=== PATIENT | female | born 1985 | race Caucasian/White ===

== ENCOUNTER 2016-11-28 12:23 | Outpatient (CLI) | payer BC ==
[~2016-11-28] VITALS: Ht 167.6 cm; Wt 98.5 kg
[~2016-11-28 12:23] MED LIST: ACET500C5 PO; NITR-58 PO
[2016-11-28] MEDS ORDERED: PRENAT PO (12:56)
[2016-11-28 12:57] VITALS: Ht 167.6 cm; Wt 98.5 kg
--- NOTE | 2016-11-28 13:34 | RADRPT ---
PROCEDURE: US OB biophysical profile. CLINICAL INDICATION: tachycardia TECHNIQUE: Multiple sonographic images of the pelvis and gravid uterus were obtained. The images were reviewed on a PACS workstation. COMPARISON: 09/27/2016 FINDINGS: There is a single viable intrauterine gestation. Cardiac activity is present with 156 beats per min [place]. There is a breech presentation. The placenta is anterior. There is no evidence for an abruption or placenta previa. There is a normal amount of amniotic fluid with an SATURNINO = 12.1 cm. Biophysical profile: movement 2/2 tone 2/2. breathing 2/2 SATURNINO 2/2 Total 06/25 RPTAT: AA . IMPRESSION: Normal biophysical profile. . .Derek Olvera MD, Date Time Electronically viewed and signed by .Derek Olvera MD, MD on 11/28/2016 13:34 .S/
--- NOTE | 2016-11-28 13:34 | RADRPT ---
PROCEDURE: US OB. CLINICAL INDICATION: Size and dates , tachycardia TECHNIQUE: Multiple sonographic images of the pelvis and gravid uterus were obtained. The images were reviewed on a PACS workstation. COMPARISON: 09/27/2016 FINDINGS: There is a single viable intrauterine gestation. Cardiac activity is present with 156 beats per min [place]. There is a breech presentation. The placenta is anterior. There is no evidence for an abruption or placenta previa. There is a normal amount of amniotic fluid with an SATURNINO = 12.1 cm. Measurements were made in order to determine age. The results are as follows: BPD =6.2 cm HC =31.5 cm AC =20.5 cm FL =4.1 cm Estimated gestational age of approximately 24 weeks and 2 days based on ultrasound measurements. Clinical age: 27 weeks and 5 days. The estimated date of delivery is 03/18/17, based on ultrasound measurements. The EFW = 674 g, <3%, based on LMP age. RPTAT: AA IMPRESSION: Single viable intrauterine gestation of approximately 24 weeks and 2 days based on ultrasound measu rements. Smaller than clinical age by 2.5 weeks. .Derek Olvera MD, MD Date Time Electronically viewed and signed by .Derek Olvera MD, on 11/28/2016 13:34 .S/
[2016-11-28 14:02] LABS: ADD UMIC YES; URINE BILIRUBIN (Dip) NEGATIVE (NEGATIVE); URINE BLOOD (Dip) NEGATIVE (NEGATIVE); URINE COLOR LT. YELLOW (YELLOW); URINE GLUCOSE (Dip) NEGATIVE (NEGATIVE); URINE KETONES (Dip) NEGATIVE (NEGATIVE); URINE LEUKOCYTE ESTERASE (Dip) 1+ (NEGATIVE); URINE NITRITE (Dip) NEGATIVE (NEGATIVE); URINE TOTAL PROTEIN (Dip) NEGATIVE (NEGATIVE); URINE UROBILINOGEN (Dip) 0.2 E.U./dL (0.1-1.0)
[2016-11-28 14:03] LABS: BASOPHILS % 0.2 % (0.0-2.0); EOSINOPHILS # 0.1 10^3/ul (0.0-0.5); EOSINOPHILS % 0.6 % (0.0-7.0); HEMATOCRIT 38.2 % (37.0-47.0); HEMOGLOBIN 13.1 g/dl (12.0-16.0); LYMPHOCYTES # 1.4 10^3/ul (0.8-2.9); LYMPHOCYTES % 13.1 % (15.0-51.0); MEAN CORPUSCULAR HEMOGLOBIN 30.2 pg (29.0-33.0); MEAN CORPUSCULAR HGB CONC 34.3 g/dl (32.0-37.0); MEAN CORPUSCULAR VOLUME 88.1 fl (82.0-101.0); MEAN PLATELET VOLUME 12.1 fl (7.4-10.4); MONOCYTE # 0.8 10^3/ul (0.3-0.9); MONOCYTES % 7.4 % (0.0-11.0); NEUTROPHIL # 8.2 10^3/ul (1.6-7.5); NEUTROPHILS % 78.7 % (39.0-77.0); PLATELET COUNT 171 10^3/UL (140-440); RED BLOOD COUNT 4.33 10^6/ul (4.20-5.40); UNCORRECTED WBC 10.4 10^3/ul (4.8-10.8); WHITE BLOOD COUNT 10.4 10^3/ul (4.8-10.8)
[2016-11-28 14:07] LABS: CONDITION 1
[2016-11-28 14:16] LABS: INR 0.89; PT RATIO 0.9
[2016-11-28 14:17] LABS: PARTIAL THROMBOPLASTIN TIME 28.4 Sec (25.0-35.0); URINE RBCS NONE SEEN /HPF (0)
[2016-11-28 14:19] LABS: ALBUMIN 3.3 g/dl (3.3-4.9)
[2016-11-28 14:21] LABS: CREATININE 0.59 mg/dl (0.44-1.00)
[2016-11-28 14:22] LABS: ALBUMIN/GLOBULIN RATIO 0.97; BILIRUBIN,INDIRECT 0.1 mg/dl (0-1.1); BILIRUBIN,TOTAL 0.1 mg/dl (0.2-1.3); TOTAL PROTEIN 6.7 g/dl (6.1-8.1); URIC ACID 4.4 mg/dl (3.1-7.9)
[2016-11-28 14:23] LABS: CALCIUM 9.4 mg/dl (8.4-10.2)
--- NOTE | 2016-11-28 21:52 | QN ---
Documentation Comment 31 years old with IUP at 27 weeks and care at [facility] presented due to elevated blood pressure noted in the office visit today as well as tachycardia . Patient denies any LOF, vaginal bleeding or LOF. Records are available but not most recent exams GA: A&O, NAD Abdomen: soft, non tender, gravid. Fundal height consistent with GA Extremities: No calf tenderness, no cord palpable. NST: cat 1.No contractions seen on the monitor BPP: 06/25 SATURNINO: 12.1 Ultrasound: Smaller than GA about 2.5 weeks ROCEDURE: US OB biophysical profile. CLINICAL INDICATION: tachycardia TECHNIQUE: Multiple sonographic images of the pelvis and gravid uterus were obtained. The images were reviewed on a PACS workstation. COMPARISON: 09/27/2016 FINDINGS: There is a single viable intrauterine gestation. Cardiac activity is present with 156 beats per minute. There is a breech presentation. The placenta is anterior. There is no evidence for an abruption or placenta previa. There is a normal amount of amniotic fluid with an SATURNINO = 12.1 cm. Biophysical profile: movement 2/2 tone 2/2. breathing 2/2 SATURNINO 2/2 Total 06/25 RPTAT: AA . IMPRESSION: Normal biophysical profile. .ROCEDURE: US OB. CLINICAL INDICATION: Size and dates , tachycardia TECHNIQUE: Multiple sonographic images of the pelvis and gravid uterus were obtained. The images were reviewed on a PACS workstation. COMPARISON: 09/27/2016 FINDINGS: There is a single viable intrauterine gestation. Cardiac activity is present with 156 beats per minute. There is a breech presentation. The placenta is anterior. There is no evidence for an abruption or placenta previa. There is a normal amount of amniotic fluid with an SATURNINO = 12.1 cm. Measurements were made in order to determine age. The results are as follows: BPD = 6.2 cm HC = 31.5 cm AC = 20.5 cm FL = 4.1 cm Estimated gestational age of approximately 24 weeks and 2 days based on ultrasound measurements. Clinical age: 27 weeks and 5 days. The estimated date of delivery is 03/18/17, based on ultrasound measurements. The EFW = 674 g, <3%, based on LMP age. RPTAT: AA IMPRESSION: Single viable intrauterine gestation of approximately 24 weeks and 2 days based on ultrasound measurements. Smaller than clinical age by 2.5 weeks. My Orders-TAJ ARELLANO MD Procedure Category Date Status Time Complete Blood Count LAB 11/28/16 Complete W/ Diff 13:15 Comprehensive LAB 11/28/16 Complete Metabolic Panel 13:15 Protime/Ptt LAB 11/28/16 Complete 13:15 Fibrinogen LAB 11/28/16 Complete 13:15 Urinalysis LAB 11/28/16 Complete 13:15 Uric Acid LAB 11/28/16 Complete 13:15 Urine Microscopic LAB 11/28/16 Complete (Lab Only) 13:25 Discharge DC 11/28/16 Transmitted Hematology - 72 Hrs Test 11/28/16 13:25 Basophils # 0.010^3/ul (0.0-0.1) Basophils % 0.2% (0.0-2.0) Blood Morphology Comment Eosinophils # 0.110^3/ul (0.0-0.5) Eosinophils % 0.6% (0.0-7.0) Hematocrit 38.2% (37.0-47.0) Hemoglobin 13.1g/dl (12.0-16.0) Lymphocytes # 1.410^3/ul (0.8-2.9) Lymphocytes % 13.1% (15.0-51.0) L Mean Corpuscular Hemoglobin 30.2pg (29.0-33.0) Mean Corpuscular Hemoglobin Concent 34.3g/dl (32.0-37.0) Mean Corpuscular Volume 88.1fl (82.0-101.0) Mean Platelet Volume 12.1fl (7.4-10.4) H Monocytes # 0.810^3/ul (0.3-0.9) Monocytes % 7.4% (0.0-11.0) Neutrophils # 8.210^3/ul (1.6-7.5) H Neutrophils % 78.7% (39.0-77.0) H Nucleated Red Blood Cells # 0.010^3/ul (0.0-0.0) Nucleated Red Blood Cells % 0.0/100WBC (0.0-0.0) Platelet Count 85436^3/UL (140-440) Red Blood Count 4.3310^6/ul (4.20-5.40) Red Cell Distribution Width 12.0% (11.5-14.5) White Blood Count 10.410^3/ul (4.8-10.8) Chemistry Test 11/28/16 13:25 Alanine Aminotransferase (ALT/SGPT) 42IU/L (13-69) Albumin 3.3g/dl (3.3-4.9) Albumin/Globulin Ratio 0.97 Alkaline Phosphatase 89IU/L (42-121) Anion Gap 12 (8-16) Aspartate Amino Transf (AST/SGOT) 20IU/L (15-46) Blood Urea Nitrogen 11mg/dl (7-20) Calcium Level 9.4mg/dl (8.4-10.2) Carbon Dioxide Level 24mmol/L (21-31) Chloride Level 105mmol/L (97-110) Creatinine 0.59mg/dl (0.44-1.00) Direct Bilirubin 0.00mg/dl (0.00-0.20) Globulin 3.40g/dl (1.3-3.2) H Glucose Level 83mg/dl (70-220) Indirect Bilirubin 0.1mg/dl (0-1.1) Potassium Level 4.0mmol/L (3.5-5.1) Sodium Level 137mmol/L (135-144) Total Bilirubin 0.1mg/dl (0.2-1.3) L Total Protein 6.7g/dl (6.1-8.1) Uric Acid 4.4mg/dl (3.1-7.9) Urine Results - 72 Hrs Test 11/28/16 13:25 Urine Bilirubin NEGATIVE (NEGATIVE) Urine Clarity CLEAR (CLEAR) Urine Color LT. YELLOW (YELLOW) Urine Epithelial Cells FEW Urine Glucose NEGATIVE% (NEGATIVE) Urine Hemoglobin NEGATIVE (NEGATIVE) Urine Ketones NEGATIVE (NEGATIVE) Urine Leukocyte Esterase 1+ (NEGATIVE) H Urine Microscopic RBC NONE SEEN/HPF (0) Urine Microscopic WBC 2-5/HPF (0) Urine Nitrite NEGATIVE (NEGATIVE) Urine Specific [place] 1.025 (1.003-1.030) Urine Total Protein NEGATIVE (NEGATIVE) Urine Urobilinogen 0.2 E.U./dL (0.1-1.0) Urine pH 6.0 (5.0-9.0) Assessment: IUP at 27 weeks and 5 days During prolonged observation in the [facility], no elevated blood pressure that meet the criteria for preclampsia noted PIH labs were all normal Patient was completely asymptomatic No tachycardia noted SGA in us exam noted Patient was given strict preclampsia precaution and PTL precaution as well as instruction for kick counts Recommended to RTC in 3 days for repeat NST on saturday and every 3 days until she has repeat follow up us with perinatologist ,. r/o IUGR Will RT NEV clinic in 2 days for follow up exam RTC if any preclampsia symptoms , PTL or any other symptoms Patient verbalized complete understanding TAJ ARELLANO MD Nov 28, 2016 21:52
== END 2016-11-28 16:45 | disposition home or self-care (01) ==
LOC: OBT 12:23 → L-D 12:24 → OBT 16:45
PROVIDERS: ATTEND Obstetrics & Gynecology
DX: O26.892 Other specified pregnancy related conditions, second trimester (principal); R03.0 Elevated blood-pressure reading, without diagnosis of hypertension; O76 Abnormality in fetal heart rate and rhythm complicating labor and delivery; Z3A.27 27 weeks gestation of pregnancy
CPT/HCPCS: 36415; 76815; 76818; 80053; 81001; 84560; 85025; 85384; 85610; 85730; Z7500; 81003; G0463

== ENCOUNTER 2016-12-01 12:03 | Outpatient (CLI) | payer BC ==
[~2016-12-01] VITALS: Ht 168.9 cm; Wt 98.2 kg
[~2016-12-01 12:03] MED LIST changes: -ACET500C5 PO; -NITR-58 PO; +PRENAT PO
[2016-12-01 12:31] VITALS: Ht 168.9 cm; Wt 98.2 kg
--- NOTE | 2017-02-11 13:10 | QN ---
Documentation Comment Patient was seen at at the triage unit to rule out IUGR underwent an ultrasound evaluation patient discharged home to the care of the clinic to repeat ultrasound in 2 weeks rule out IUGR Impression rule out IUGR NIKKY JERRY MD Feb 11, 2017 13:10
== END 2016-12-01 13:23 | disposition home or self-care (01) ==
LOC: L-D 12:03 → OBT 12:03
PROVIDERS: ATTEND Obstetrics & Gynecology
DX: O26.899 Other specified pregnancy related conditions, unspecified trimester (principal); Z3A.00 Weeks of gestation of pregnancy not specified
CPT/HCPCS: G0463

== ENCOUNTER 2016-12-18 11:27 | Inpatient (IN) | payer BC ==
[~2016-12-18] VITALS: Ht 167.6 cm; Wt 94.5 kg
[2016-12-18] MEDS: LACTATED RINGER'S 1,000 ML IV SCH ×2 (13:51→22:10)
[2016-12-18 14:07] VITALS: Ht 167.6 cm; Wt 94.5 kg
[2016-12-18 14:09] VITALS: BP 133/89; PULSE 87; RESP 16
--- NOTE | 2016-12-18 14:11 | HP ---
Date/Time of Note Date/Time of Note DATE: 12/18/16 TIME: 13:49 OB - History Hx of Present Free Text/Dictation This is a 31 years old female 3 para 2, EDC of 2016 referred from perinatology clinic for PIH work up, today's ultrasound places the baby at 15% suspected of IUGR, patient also is complaining of headache but no blurry vision or epigastric pain, her blood pressure running in the 140s over 80s and 90s no ankle edema, reflexes slightly hyperactive Chief Complaint: Rule out PIH Estimated Due Date: Mar 01, 2017 : 3 Para: 2 Care: Limited Care Ultrasounds: Normal mid trimester US Obstetrical Complications: Pre-eclampsia Past Family/Social History * Past Medical, Surgical, Family and Obstetric Histories reviewed from chart. Rubella: immune RPR/VDRL: Negative GBS Status: Negative HBsAG: Unknown OB Admission Exam Physical Exam HEENT: WNL Heart: Rhythm Normal Lungs: Clear, Equal Extremities: Normal Reflexes: Hyperreflexia Present Cervical Dilatation: None Effacement: 0% Station: Ballotable Membranes: Intact Heart Rate: 130's Accelerations: Accelerations Present Decelerations: No Decelerations Varibility: Moderate OB Assessment/Plan Reason for admission: other (Rule out PIh, rule out IUGR) Plan: Other (Observation complete workup for PIH) NIKKY JERRY MD Dec 18, 2016 14:00
[2016-12-18] MEDS ORDERED: LACTATED RINGER'S 1,000 ML IV SCH (14:30)
[2016-12-18] MEDS: MULTIVIT/MIN/FOLATE/IRON/PREN TAB PO SCH (14:54)
[2016-12-18 14:55] LABS: BASOPHILS % 0.1 % (0.0-2.0); EOSINOPHILS # 0.1 10^3/ul (0.0-0.5); EOSINOPHILS % 0.6 % (0.0-7.0); HEMATOCRIT 38.2 % (37.0-47.0); HEMOGLOBIN 12.8 g/dl (12.0-16.0); LYMPHOCYTES # 1.5 10^3/ul (0.8-2.9); LYMPHOCYTES % 12.9 % (15.0-51.0); MEAN CORPUSCULAR HEMOGLOBIN 30.1 pg (29.0-33.0); MEAN CORPUSCULAR HGB CONC 33.6 g/dl (32.0-37.0); MEAN CORPUSCULAR VOLUME 89.6 fl (82.0-101.0); MEAN PLATELET VOLUME 13.1 fl (7.4-10.4); MONOCYTE # 0.6 10^3/ul (0.3-0.9); MONOCYTES % 5.4 % (0.0-11.0); NEUTROPHIL # 9.3 10^3/ul (1.6-7.5); PLATELET COUNT 143 10^3/UL (140-440); RED BLOOD COUNT 4.26 10^6/ul (4.20-5.40); RED CELL DISTRIBUTION WIDTH 12.4 % (11.5-14.5); UNCORRECTED WBC 11.5 10^3/ul (4.8-10.8); WHITE BLOOD COUNT 11.5 10^3/ul (4.8-10.8)
[2016-12-18] MEDS: BETAMET NA PHOS/AC(6 MG/ML) 5ML INJ IM SCH (14:55)
[2016-12-18 14:58] LABS: ADD UMIC NO; URINE BILIRUBIN (Dip) NEGATIVE (NEGATIVE); URINE BLOOD (Dip) NEGATIVE (NEGATIVE); URINE COLOR LT. YELLOW (YELLOW); URINE GLUCOSE (Dip) NEGATIVE (NEGATIVE); URINE KETONES (Dip) NEGATIVE (NEGATIVE); URINE LEUKOCYTE ESTERASE (Dip) NEGATIVE (NEGATIVE); URINE NITRITE (Dip) NEGATIVE (NEGATIVE); URINE TOTAL PROTEIN (Dip) NEGATIVE (NEGATIVE); URINE UROBILINOGEN (Dip) 0.2 E.U./dL (0.1-1.0)
[2016-12-18 14:59] LABS: CONDITION 1; LH ANALYZER COMMENTS 1; SUSPECT 1
[2016-12-18 15:08] LABS: INR 0.98
[2016-12-18 15:09] LABS: PARTIAL THROMBOPLASTIN TIME 29.7 Sec (25.0-35.0)
[2016-12-18 15:32] LABS: ALBUMIN 3.1 g/dl (3.3-4.9); POTASSIUM 3.9 mmol/L (3.5-5.1)
[2016-12-18 15:34] LABS: CREATININE 0.61 mg/dl (0.44-1.00)
[2016-12-18 15:35] LABS: CALCIUM 9.2 mg/dl (8.4-10.2); TOTAL PROTEIN 6.2 g/dl (6.1-8.1)
[2016-12-18 19:06] LABS: FIBRIN SPLIT PRODUCT <10 ug/ml (<10)
[2016-12-19] MEDS: MULTIVIT/MIN/FOLATE/IRON/PREN TAB PO SCH (08:59)
--- NOTE | 2016-12-19 13:49 | PN ---
Date/Time of Note Date/Time of Note DATE: 12/19/16 TIME: 13:43 OB Subjective Subjective Subjective Vital signs are stable blood pressure running 130 over 80s, negative protein in urinalysis ,24 hours urine collection for protein and creatinine clearance not available, patient has no more headache or epigastric pain or any other complaint, heart tracing category 1 compatible with the stage of we will continue expectant management NIKKY JERRY MD Dec 19, 2016 13:49
[2016-12-19] MEDS: BETAMET NA PHOS/AC(6 MG/ML) 5ML INJ IM SCH (14:31)
--- NOTE | 2016-12-19 16:09 | RADRPT ---
PROCEDURE: US biophysical profile. CLINICAL INDICATION: Decreased motion. Hypertension. TECHNIQUE: Multiple sonographic images of the uterus were obtained. The images were revi ewed on a PACS workstation. COMPARISON: No prior studies are available for comparison. FINDINGS: There is a single live intrauterine gestation. heart rate is 161 beats per minute. The position is cephalic. The placenta is anterior grade 1 with no abruption or previa. The SATURNINO is 12.6 cm. (Normal = 5-20 cm.) Breathing Movement: 2 Gross Body Movement: 2 Tone: 2 Qualitative Amniotic Fluid Volume: 2 TOTAL: 8 IMPRESSION: 1. The biophysical score is 8/8. RPTAT: QQ .Balaji Edmondson MD, MD Date Time Electronically viewed and signed by .Balaji Edmondson MD, on 12/19/2016 16:09 .R/
--- NOTE | 2016-12-19 16:11 | RADRPT ---
PROCEDURE: US OB. CLINICAL INDICATION: Hypertension. TECHNIQUE: Multiple sonographic images of the uterus were obtained. The images were revi ewed on a PACS workstation. COMPARISON: 11/28/2016. FINDINGS: There is a single live intrauterine gestation. heart rate is 148 beats per minute. Measurements were made in order to determine age. The results are as follows: BPD = 6.76 cm. HC = 24.42 cm. AC = 24.51 cm. FL = 4.87 cm. Estimated weight is 1104 +/- 166 grams. LMP growth percentile is less than 3%. Menstrual age by ultrasound dates is 27 weeks 2 days. The estimated date of delivery is 03/18/2017. Position is cephalic and placenta is anterior grade 1. There is no evidence for an abruption or plac enta previa. IMPRESSION: 1. Single live intrauterine gestation of 27 weeks 2 days menstrual age by ultrasound dates. 2. The estimated date of delivery is 03/18/2017. 3. Growth percentile is less than 3%. RPTAT: QQ .Balaji Edmondson MD, Date Time Electronically viewed and signed by .Balaji Edmondson MD, on 12/19/2016 16:11 .R/
[2016-12-19 17:42] LABS: COLLECTION PERIOD 24 hrs; SCRET 0.61 mg/dl (0.44-1.00)
[2016-12-20] MEDS: MULTIVIT/MIN/FOLATE/IRON/PREN TAB PO SCH (08:37)
--- NOTE | 2016-12-20 10:18 | DS ---
Date/Time of Note Date/Time of Note DATE: 12/20/16 TIME: 10:05 Obstetrical Discharge Record Final Diagnosis Final Diagnosis: not delivered Condition on Discharge Physical Assessment Last Vitals: This is a 31 years old female 3 para 2 EDC of February 22, today at 31 week gestation, she was originally admitted to the hospital to rule out PIH referred from NST clinic for evaluation, during the stay in the hospital all PIH workup was negative, 24 hours urine collection not available at this time, but urinalysis shows no protein in the urine, telephone consult with perinatologist today recommend to discharge home with appointment a.m.at perinatology clinic Voiding: Yes Bowel Movement: Yes Breast: Soft, non-tender Fundus: Other (Consistent with 31 week ) Calf Tenderness: No Patient Condition: Good NIKKY JERRY MD Dec 20, 2016 10:17
[2016-12-21] MEDS ORDERED: MULTIVIT/MIN/FOLATE/IRON/PREN TAB PO SCH (09:00)
== END 2016-12-20 11:29 | disposition home or self-care (01) | DRG 781 ==
LOC: OBG 11:27 → EDSTATUS 12:07
PROVIDERS: ADMIT Obstetrics & Gynecology; ATTEND Obstetrics & Gynecology
DX: O26.893 Other specified pregnancy related conditions, third trimester (principal); R51 Headache; Z3A.31 31 weeks gestation of pregnancy
CPT/HCPCS: 76816; 76818; 80053; 81003; 82575; 84156; 84560; 85025; 85362; 85384; 85610; 85730; J0702; J7120

== ENCOUNTER 2016-12-29 22:19 | Outpatient (CLI) | payer BC ==
[~2016-12-29] VITALS: Ht 170.2 cm; Wt 98.8 kg
[2016-12-29] MEDS ORDERED: LABE100T39 PO (22:45)
[2016-12-29] MEDS ORDERED: FERR325C PO (22:45)
[2016-12-29] MEDS ORDERED: ACET500C5 PO (22:45)
[2016-12-29 22:46] VITALS: Ht 170.2 cm; Wt 98.8 kg
[2016-12-29 22:47] VITALS: BP 138/95; PULSE 96; RESP 20
[2016-12-30] MEDS ORDERED: LACTATED RINGER'S 1,000 ML IV* SCH
[2016-12-30] MEDS ORDERED: HYDROCODONE/APAP (5/325) TAB PO ONE
[2016-12-30] MEDS ORDERED: LABETALOL 200 MG TAB PO ONE
[2016-12-30 00:51] LABS: ADD UMIC YES; URINE BILIRUBIN (Dip) NEGATIVE (NEGATIVE); URINE BLOOD (Dip) NEGATIVE (NEGATIVE); URINE COLOR LT. YELLOW (YELLOW); URINE GLUCOSE (Dip) NEGATIVE (NEGATIVE); URINE KETONES (Dip) NEGATIVE (NEGATIVE); URINE LEUKOCYTE ESTERASE (Dip) 1+ (NEGATIVE); URINE NITRITE (Dip) NEGATIVE (NEGATIVE); URINE TOTAL PROTEIN (Dip) NEGATIVE (NEGATIVE); URINE UROBILINOGEN (Dip) 0.2 E.U./dL (0.1-1.0)
[2016-12-30 01:01] LABS: INR 0.91; PROTIME 12.2 Sec (12.2-14.2)
[2016-12-30 01:02] LABS: BACTERIA,URINE RARE; PARTIAL THROMBOPLASTIN TIME 30.3 Sec (25.0-35.0); SQUAMOUS EPITHELIAL CELL,UR MODERATE; URINE RBCS NONE SEEN /HPF (0)
[2016-12-30 01:14] LABS: ALBUMIN 3.3 g/dl (3.3-4.9)
[2016-12-30 01:15] LABS: POTASSIUM 4.3 mmol/L (3.5-5.1)
[2016-12-30 01:16] LABS: CREATININE 0.63 mg/dl (0.44-1.00)
[2016-12-30 01:17] LABS: ALBUMIN/GLOBULIN RATIO 0.91; TOTAL PROTEIN 6.9 g/dl (6.1-8.1); URIC ACID 5.9 mg/dl (3.1-7.9)
[2016-12-30 01:18] LABS: CALCIUM 9.3 mg/dl (8.4-10.2)
[2016-12-30 01:32] LABS: BASOPHILS % 0.2 % (0.0-2.0); EOSINOPHILS # 0.1 10^3/ul (0.0-0.5); EOSINOPHILS % 0.7 % (0.0-7.0); HEMATOCRIT 37.5 % (37.0-47.0); HEMOGLOBIN 12.8 g/dl (12.0-16.0); LYMPHOCYTES # 2.2 10^3/ul (0.8-2.9); MEAN CORPUSCULAR HEMOGLOBIN 30.3 pg (29.0-33.0); MEAN CORPUSCULAR HGB CONC 34.1 g/dl (32.0-37.0); MEAN CORPUSCULAR VOLUME 88.7 fl (82.0-101.0); MEAN PLATELET VOLUME 13.6 fl (7.4-10.4); MONOCYTE # 0.9 10^3/ul (0.3-0.9); MONOCYTES % 7.3 % (0.0-11.0); NEUTROPHIL # 9.5 10^3/ul (1.6-7.5); NEUTROPHILS % 74.3 % (39.0-77.0); PLATELET COUNT 187 10^3/UL (140-415); RED BLOOD COUNT 4.23 10^6/ul (4.20-5.40); RED CELL DISTRIBUTION WIDTH 12.3 % (11.5-14.5); WHITE BLOOD COUNT 12.8 10^3/ul (4.8-10.8)
--- NOTE | 2016-12-30 03:07 | QN ---
Documentation Comment Laborist RODRIGO pt 31 y.o. with an IUP at 32w 2d with a c/o CALDERON. Pt has a h/o gestational HTN and is on Labetolol 100 mg BID that she has been taking at 11:45 and 23:45 q day. Denies visual changes, epigastric pain. Prior admit labs all within normal. A 24 hour urine collection showed 287 mg protein in 24 hours. Pt took Tylenol 325 mg only today and it didn't help the CALDERON at all. PMHx: GHTN. PSHx: none. POBHx: x 2. NKDA. BP 138/9. T= 98.1 NST: baseline 140's with accels to 160 bpm. No decels. No UC's. U/A negative. Plts 187K. ALT/AST 34/24. Uric acid 5.9. We gave her the dose of labetolol that was due and placed her on the side and her BP's were 120-134/ 73-87. One [place] easily made the CALDERON go away. Pt apparently has not been sleeping well recently at all. A: IUP at 32w 2d. Gestational HTN. Headache resolved. P: D/C home. Change the Medication time to 10 in AM and PM. Reviewed PIH sx's and emphasized the importance of coming in if she doesn't have resolution with easy measures. Benadryl or Unisom to help her sleep. LUIS COX MD Dec 30, 2016 03:06
--- NOTE | 2016-12-30 05:47 | TRIAGE ---
OB Triage Datetime Report Generated by CPN: 12/30/2016 05:45 Datetime: 12/30/2016 02:58 Stage of : OB Triage Datetime: 12/30/2016 02:38 Stage of : OB Triage Labor Evaluation Frequency: None noted or palpated. Pt denies any pain or cramping. Monitor Mode: External Resting Tone [place]: Relaxed Heart Rate FHR Baseline Rate: 140 Monitor Mode: External US Variability: Moderate 6-25 bpm Accelerations: 15X15 Decelerations: None Datetime: 12/30/2016 02:31 Stage of : OB Triage Datetime: 12/30/2016 02:00 Stage of : OB Triage Labor Evaluation Frequency: None noted or palpated. Pt denies any pain or cramping. Monitor Mode: External Resting Tone [place]: Relaxed Heart Rate FHR Baseline Rate: 140 Monitor Mode: External US Variability: Moderate 6-25 bpm Accelerations: 15X15 Decelerations: Variable Category: Category II Datetime: 12/30/2016 01:38 Stage of : OB Triage Datetime: 12/30/2016 01:11 Monitor Mode: External Monitor Mode: External US Datetime: 12/30/2016 01:00 Stage of : OB Triage Labor Evaluation Frequency: None noted or palpated. Pt denies any pain or cramping. Monitor Mode: External Resting Tone [place]: Relaxed Heart Rate FHR Baseline Rate: 140 Monitor Mode: External US Variability: Moderate 6-25 bpm Accelerations: 15X15 Decelerations: Variable Category: Category II Datetime: 12/30/2016 00:00 Stage of : OB Triage Labor Evaluation Frequency: None noted or palpated. Pt denies any pain or cramping. Monitor Mode: External Resting Tone [place]: Relaxed Heart Rate FHR Baseline Rate: 140 Monitor Mode: External US Variability: Moderate 6-25 bpm Accelerations: 15X15 Decelerations: None Datetime: 12/29/2016 23:30 Stage of : OB Triage Datetime: 12/29/2016 23:00 Stage of : OB Triage Labor Evaluation Frequency: None noted or palpated. Pt denies any pain or cramping. Monitor Mode: External Resting Tone [place]: Relaxed Heart Rate FHR Baseline Rate: 145 Monitor Mode: External US Variability: Moderate 6-25 bpm Accelerations: 15X15 Decelerations: None Category: Category I Datetime: 12/29/2016 22:30 Stage of : OB Triage Assessment Type: Triage Maternal Assessment Level of Consciousness: Fully Conscious DTR's/Clonus: DTRs 2+; No Clonus Headache: Occipital Blurred Vision: Yes Respiratory Effort: Unlabored; Regular Rhythm; Equal Expansion Breath Sounds, Left: Clear and Equal Breath Sounds, Right: Clear and Equal Nausea/Vomiting: Denies RUQ Epigastric Pain: Denies Lower Extremities Edema: None Degree: None Upper Extremities Edema: None Degree: None Facial Edema: None Temperature Route: Oral Fall Risk Assessment History of Falling: (0) No Secondary Diagnosis: (0) No Ambulatory Aid: (0) Bedrest/Nurse Assist IV Therapy: (0) No Gait: (0) Normal/Bedrest/Immobile Mental Status: (0) Oriented to Own Ability Fall Score: 0 Fall Risk Score Definition: No Risk: No action required Pain Assessment Pain Scale: 8 Pain Presence: Constant Pain Type: Ache Pain Location: Head Pain Relief Measures: Comfort Measures Datetime: 12/29/2016 22:29 Monitor Mode: External Contraction Comments: [place] applied Heart Rate FHR Baseline Rate: 150 Monitor Mode: External US Comments: EFM applied Datetime: 12/29/2016 22:21 Time of Arrival: 12/29/2016 22:13 EGA: 32.1 Arrived By: Wheelchair Arrived From: Home Chief Complaint: CALDERON SINCE 13:00 HX OF HTN, ON MEDS Movement: Decreased Contractions: Denies/Absent Rupture of Membranes: Denies Vaginal Bleeding: None Vaginal Discharge: Denies Recent Sexual Intercouse: Denies Abdominal Trauma: Not Applicable Patient Complaints: Headache; Other Additional Patient Complaints: SEEING SPOTS Time Provider Notified: 12/29/2016 22:30 Provider Notified: KENNY Initial Plan: EFM, VS, CALL OB Datetime: 12/20/2016 11:15 Stage of : Antepartum Datetime: 12/20/2016 09:46 Labor Evaluation Frequency: none Monitor Mode: External Resting Tone [place]: Relaxed Heart Rate FHR Baseline Rate: 140 Monitor Mode: External US FHR Baseline Changes: No Baseline Change Variability: Moderate 6-25 bpm Accelerations: 15X15 Datetime: 12/20/2016 08:46 Labor Evaluation Frequency: none Monitor Mode: External Resting Tone [place]: Relaxed Heart Rate FHR Baseline Rate: 140 Monitor Mode: External US FHR Baseline Changes: No Baseline Change Variability: Moderate 6-25 bpm Accelerations: 15X15 Datetime: 12/20/2016 07:46 Temperature Route: Oral Labor Evaluation Frequency: none Monitor Mode: External Resting Tone [place]: Relaxed Heart Rate FHR Baseline Rate: 140 Monitor Mode: External US FHR Baseline Changes: No Baseline Change Variability: Moderate 6-25 bpm Accelerations: 15X15 Decelerations: Variable Datetime: 12/20/2016 07:30 Assessment Type: Ongoing Assessment Maternal Assessment Level of Consciousness: Fully Conscious DTR's/Clonus: DTRs 2+; No Clonus Headache: Denies Blurred Vision: No Respiratory Effort: Unlabored; Regular Rhythm; Equal Expansion Breath Sounds, Left: Clear and Equal Breath Sounds, Right: Clear and Equal Nausea/Vomiting: Denies RUQ Epigastric Pain: Denies Lower Extremities Edema: None Degree: None Upper Extremities Edema: None Degree: None Facial Edema: None Fall Risk Assessment History of Falling: (0) No Secondary Diagnosis: (0) No Ambulatory Aid: (0) Bedrest/Nurse Assist IV Therapy: (0) No Gait: (0) Normal/Bedrest/Immobile Mental Status: (0) Oriented to Own Ability Fall Score: 0 Fall Risk Score Definition: No Risk: No action required Datetime: 12/20/2016 06:58 Labor Evaluation Frequency: none Monitor Mode: External Resting Tone [place]: Relaxed Heart Rate FHR Baseline Rate: 140 Monitor Mode: External US FHR Baseline Changes: No Baseline Change Variability: Moderate 6-25 bpm Accelerations: 15X15 Decelerations: Variable Category: Category II Datetime: 12/20/2016 06:00 Labor Evaluation Frequency: none Monitor Mode: External Resting Tone [place]: Relaxed Heart Rate FHR Baseline Rate: 140 Monitor Mode: External US FHR Baseline Changes: No Baseline Change Variability: Moderate 6-25 bpm Accelerations: 15X15 Decelerations: None Category: Category I Datetime: 12/20/2016 05:46 Stage of : Antepartum Datetime: 12/20/2016 05:00 Labor Evaluation Frequency: none Monitor Mode: External Resting Tone [place]: Relaxed Heart Rate FHR Baseline Rate: 140 Monitor Mode: External US FHR Baseline Changes: No Baseline Change Variability: Moderate 6-25 bpm Accelerations: 15X15 Decelerations: Variable Category: Category II Datetime: 12/20/2016 04:00 Labor Evaluation Frequency: none Monitor Mode: External Resting Tone [place]: Relaxed Heart Rate FHR Baseline Rate: 130 Monitor Mode: External US FHR Baseline Changes: No Baseline Change Variability: Moderate 6-25 bpm Accelerations: 15X15 Decelerations: None Category: Category I Datetime: 12/20/2016 03:00 Labor Evaluation Frequency: none Monitor Mode: External Resting Tone [place]: Relaxed Heart Rate FHR Baseline Rate: 130 Monitor Mode: External US FHR Baseline Changes: No Baseline Change Variability: Moderate 6-25 bpm Accelerations: 15X15 Decelerations: None Category: Category I Datetime: 12/20/2016 02:00 Labor Evaluation Frequency: none Monitor Mode: External Resting Tone [place]: Relaxed Heart Rate FHR Baseline Rate: 130 Monitor Mode: External US FHR Baseline Changes: No Baseline Change Variability: Moderate 6-25 bpm Accelerations: 15X15 Decelerations: Variable Category: Category II Datetime: 12/20/2016 01:00 Labor Evaluation Frequency: none Monitor Mode: External Resting Tone [place]: Relaxed Heart Rate FHR Baseline Rate: 140 Monitor Mode: External US FHR Baseline Changes: No Baseline Change Variability: Moderate 6-25 bpm Accelerations: 15X15 Decelerations: None Category: Category I Datetime: 12/20/2016 00:00 Labor Evaluation Frequency: none Monitor Mode: External Resting Tone [place]: Relaxed Heart Rate FHR Baseline Rate: 140 Monitor Mode: External US FHR Baseline Changes: No Baseline Change Variability: Moderate 6-25 bpm Accelerations: 15X15 Decelerations: None Category: Category I Datetime: 12/19/2016 23:00 Labor Evaluation Frequency: none Monitor Mode: External Resting Tone [place]: Relaxed Heart Rate FHR Baseline Rate: 140 Monitor Mode: External US FHR Baseline Changes: No Baseline Change Variability: Moderate 6-25 bpm Accelerations: 15X15 Decelerations: None Category: Category I Datetime: 12/19/2016 22:00 Labor Evaluation Frequency: x1 Monitor Mode: External Duration (sec)2399: 70 Quality: Mild Resting Tone [place]: Relaxed Contraction Comments: pt without complaint of uc pain Heart Rate FHR Baseline Rate: 140 Monitor Mode: External US FHR Baseline Changes: No Baseline Change Variability: Moderate 6-25 bpm Accelerations: 15X15 Decelerations: None Category: Category I Pain Assessment Pain Scale: 0 Pain Presence: None/Denies Datetime: 12/19/2016 21:00 Labor Evaluation Frequency: none Monitor Mode: External Resting Tone [place]: Relaxed Heart Rate FHR Baseline Rate: 145 Monitor Mode: External US FHR Baseline Changes: No Baseline Change Variability: Moderate 6-25 bpm Accelerations: 15X15 Decelerations: None Category: Category I Datetime: 12/19/2016 20:10 Labor Evaluation Frequency: none Monitor Mode: External Resting Tone [place]: Relaxed Heart Rate FHR Baseline Rate: 135 Monitor Mode: External US FHR Baseline Changes: No Baseline Change Variability: Moderate 6-25 bpm Accelerations: 15X15 Decelerations: None Category: Category I Pain Assessment Pain Scale: 0 Pain Presence: None/Denies Datetime: 12/19/2016 20:02 Assessment Type: Ongoing Assessment Maternal Assessment Level of Consciousness: Fully Conscious DTR's/Clonus: DTRs 2+; No Clonus Headache: Denies Blurred Vision: No Respiratory Effort: Unlabored; Regular Rhythm; Equal Expansion Breath Sounds, Left: Clear and Equal Breath Sounds, Right: Clear and Equal Nausea/Vomiting: Denies RUQ Epigastric Pain: Denies Lower Extremities Edema: None Degree: None Upper Extremities Edema: None Degree: None Facial Edema: None Fall Risk Assessment History of Falling: (0) No Secondary Diagnosis: (0) No Ambulatory Aid: (0) Bedrest/Nurse Assist IV Therapy: (0) No Gait: (0) Normal/Bedrest/Immobile Mental Status: (0) Oriented to Own Ability Fall Score: 0 Fall Risk Score Definition: No Risk: No action required Datetime: 12/19/2016 20:01 Stage of : Antepartum Temperature Route: Oral Datetime: 12/19/2016 18:46 Maternal Assessment Level of Consciousness: Fully Conscious Headache: Denies Nausea/Vomiting: Denies RUQ Epigastric Pain: Denies Labor Evaluation Frequency: 0 Monitor Mode: External Resting Tone [place]: Relaxed Heart Rate FHR Baseline Rate: 140 Monitor Mode: External US Variability: Moderate 6-25 bpm Accelerations: 15X15 Decelerations: None Pain Presence: None/Denies Pain Type: N/A Datetime: 12/19/2016 17:45 Maternal Assessment Level of Consciousness: Fully Conscious Headache: Denies Nausea/Vomiting: Denies RUQ Epigastric Pain: Denies Labor Evaluation Frequency: 0 Monitor Mode: External Resting Tone [place]: Relaxed Heart Rate FHR Baseline Rate: 140 Monitor Mode: External US Variability: Moderate 6-25 bpm Accelerations: 15X15 Decelerations: None Pain Presence: None/Denies Pain Type: N/A Datetime: 12/19/2016 16:45 Maternal Assessment Level of Consciousness: Fully Conscious Headache: Denies Nausea/Vomiting: Denies RUQ Epigastric Pain: Denies Temperature Route: Oral Labor Evaluation Frequency: 0 Monitor Mode: External Resting Tone [place]: Relaxed Heart Rate FHR Baseline Rate: 140 Monitor Mode: External US Variability: Moderate 6-25 bpm Accelerations: 15X15 Decelerations: None Pain Presence: None/Denies Pain Type: N/A Datetime: 12/19/2016 15:45 Maternal Assessment Level of Consciousness: Fully Conscious Headache: Denies Nausea/Vomiting: Denies RUQ Epigastric Pain: Denies Temperature Route: Oral Labor Evaluation Frequency: 0 Monitor Mode: External Resting Tone [place]: Relaxed Heart Rate FHR Baseline Rate: 140 Monitor Mode: External US Variability: Moderate 6-25 bpm Accelerations: 15X15 Decelerations: None Pain Presence: None/Denies Pain Type: N/A Datetime: 12/19/2016 14:45 Maternal Assessment Level of Consciousness: Fully Conscious Headache: Denies Nausea/Vomiting: Denies RUQ Epigastric Pain: Denies Labor Evaluation Frequency: 0 Monitor Mode: External Resting Tone [place]: Relaxed Heart Rate FHR Baseline Rate: 140 Monitor Mode: External US Variability: Moderate 6-25 bpm Accelerations: 15X15 Decelerations: None Pain Presence: None/Denies Pain Type: N/A Datetime: 12/19/2016 13:45 Maternal Assessment Level of Consciousness: Fully Conscious Headache: Denies Nausea/Vomiting: Denies RUQ Epigastric Pain: Denies Labor Evaluation Frequency: x2 Monitor Mode: External Duration (sec)2399: 50 Quality: Mild Resting Tone [place]: Relaxed Heart Rate FHR Baseline Rate: 140 Monitor Mode: External US Variability: Moderate 6-25 bpm Accelerations: 15X15 Decelerations: None Pain Presence: None/Denies Pain Type: N/A Datetime: 12/19/2016 13:30 Stage of : Antepartum Datetime: 12/19/2016 12:45 Maternal Assessment Level of Consciousness: Fully Conscious Headache: Denies Nausea/Vomiting: Denies RUQ Epigastric Pain: Denies Labor Evaluation Frequency: x2 Monitor Mode: External Duration (sec)2399: 50 Quality: Mild Resting Tone [place]: Relaxed Heart Rate FHR Baseline Rate: 140 Monitor Mode: External US Variability: Moderate 6-25 bpm Accelerations: 15X15 Decelerations: None Pain Presence: None/Denies Pain Type: N/A Datetime: 12/19/2016 11:45 Maternal Assessment Level of Consciousness: Fully Conscious Headache: Denies Nausea/Vomiting: Denies RUQ Epigastric Pain: Denies Temperature Route: Oral Labor Evaluation Frequency: 0 Monitor Mode: External Duration (sec)2399: denies Resting Tone [place]: Relaxed Heart Rate FHR Baseline Rate: 140 Monitor Mode: External US Variability: Moderate 6-25 bpm Accelerations: 15X15 Decelerations: None Pain Presence: None/Denies Pain Type: N/A Datetime: 12/19/2016 10:45 Maternal Assessment Level of Consciousness: Fully Conscious Headache: Denies Nausea/Vomiting: Denies RUQ Epigastric Pain: Denies Labor Evaluation Frequency: 0 Monitor Mode: External Duration (sec)2399: denies Resting Tone [place]: Relaxed Heart Rate FHR Baseline Rate: 140 Monitor Mode: External US Variability: Moderate 6-25 bpm Accelerations: 15X15 Decelerations: None Pain Presence: None/Denies Pain Type: N/A Datetime: 12/19/2016 09:45 Maternal Assessment Level of Consciousness: Fully Conscious Headache: Denies Nausea/Vomiting: Denies RUQ Epigastric Pain: Denies Labor Evaluation Frequency: 0 Monitor Mode: External Duration (sec)2399: denies Resting Tone [place]: Relaxed Heart Rate FHR Baseline Rate: 140 Monitor Mode: External US Variability: Moderate 6-25 bpm Accelerations: 15X15 Decelerations: None Pain Presence: None/Denies Pain Type: N/A Datetime: 12/19/2016 08:45 Maternal Assessment Level of Consciousness: Fully Conscious DTR's/Clonus: DTRs 2+; No Clonus Headache: Denies Nausea/Vomiting: Denies RUQ Epigastric Pain: Denies Labor Evaluation Frequency: 0 Monitor Mode: External Duration (sec)2399: denies Resting Tone [place]: Relaxed Heart Rate FHR Baseline Rate: 140 Monitor Mode: External US Variability: Moderate 6-25 bpm Accelerations: 15X15 Decelerations: None Pain Presence: None/Denies Pain Type: N/A Datetime: 12/19/2016 07:45 Assessment Type: Ongoing Assessment Maternal Assessment Level of Consciousness: Fully Conscious DTR's/Clonus: DTRs 2+; No Clonus Headache: Denies Blurred Vision: No Respiratory Effort: Unlabored; Regular Rhythm; Equal Expansion Breath Sounds, Left: Clear and Equal Breath Sounds, Right: Clear and Equal Nausea/Vomiting: Denies RUQ Epigastric Pain: Denies Lower Extremities Edema: None Degree: None Upper Extremities Edema: None Degree: None Facial Edema: None Temperature Route: Oral Fall Risk Assessment History of Falling: (0) No Secondary Diagnosis: (0) No Ambulatory Aid: (0) Bedrest/Nurse Assist IV Therapy: (0) No Gait: (0) Normal/Bedrest/Immobile Mental Status: (0) Oriented to Own Ability Fall Score: 0 Fall Risk Score Definition: No Risk: No action required Labor Evaluation Frequency: 0 Monitor Mode: External Duration (sec)2399: denies Resting Tone [place]: Relaxed Heart Rate FHR Baseline Rate: 135 Monitor Mode: External US Variability: Moderate 6-25 bpm Accelerations: 15X15 Decelerations: None Pain Presence: None/Denies Pain Type: N/A Datetime: 12/19/2016 06:00 Labor Evaluation Frequency: 0 Monitor Mode: External Duration (sec)2399: denies Resting Tone [place]: Relaxed Heart Rate FHR Baseline Rate: 140 Monitor Mode: External US Variability: Moderate 6-25 bpm Accelerations: 15X15 Decelerations: None Category: Category I Pain Presence: None/Denies Pain Type: N/A Datetime: 12/19/2016 05:00 Labor Evaluation Frequency: 0 Monitor Mode: External Duration (sec)2399: denies Resting Tone [place]: Relaxed Heart Rate FHR Baseline Rate: 140 Monitor Mode: External US Variability: Moderate 6-25 bpm Accelerations: 15X15 Decelerations: Variable Category: Category II Pain Presence: None/Denies Pain Type: N/A Datetime: 12/19/2016 04:00 Labor Evaluation Frequency: 0 Monitor Mode: External Resting Tone [place]: Relaxed Heart Rate FHR Baseline Rate: 140 Variability: Moderate 6-25 bpm Pain Presence: None/Denies Pain Type: N/A Datetime: 12/19/2016 02:57 Labor Evaluation Frequency: 0 Monitor Mode: External Resting Tone [place]: Relaxed Heart Rate FHR Baseline Rate: 140 Monitor Mode: External US Variability: Moderate 6-25 bpm Accelerations: 15X15 Decelerations: None Category: Category I Pain Presence: None/Denies Pain Type: N/A Datetime: 12/19/2016 02:00 Labor Evaluation Frequency: 0 Monitor Mode: External Resting Tone [place]: Relaxed Heart Rate FHR Baseline Rate: 140 Monitor Mode: External US Variability: Moderate 6-25 bpm Accelerations: 15X15 Decelerations: None Comments: loc due to maternal movements. Pain Presence: None/Denies Pain Type: N/A Datetime: 12/19/2016 01:00 Labor Evaluation Frequency: 0 Monitor Mode: External Resting Tone [place]: Relaxed Heart Rate FHR Baseline Rate: 140 Monitor Mode: External US Variability: Moderate 6-25 bpm Accelerations: 15X15 Decelerations: None Category: Category I Pain Presence: None/Denies Pain Type: N/A Datetime: 12/19/2016 00:00 Labor Evaluation Frequency: 0 Monitor Mode: External Resting Tone [place]: Relaxed Heart Rate FHR Baseline Rate: 140 Monitor Mode: External US Variability: Moderate 6-25 bpm Accelerations: 15X15 Decelerations: None Category: Category I Pain Presence: None/Denies Pain Type: N/A Datetime: 12/18/2016 23:33 Stage of : Antepartum Datetime: 12/18/2016 23:00 Maternal Assessment Level of Consciousness: Fully Conscious Headache: Denies Blurred Vision: No Nausea/Vomiting: Denies RUQ Epigastric Pain: Denies Facial Edema: None Labor Evaluation Frequency: 0 Monitor Mode: External Resting Tone [place]: Relaxed Heart Rate FHR Baseline Rate: 135 Monitor Mode: External US Variability: Moderate 6-25 bpm Accelerations: 15X15 Decelerations: None Category: Category I Pain Presence: None/Denies Pain Type: N/A Datetime: 12/18/2016 22:00 Labor Evaluation Frequency: 0 Monitor Mode: External Duration (sec)2399: denies Resting Tone [place]: Relaxed Heart Rate FHR Baseline Rate: 135 Monitor Mode: External US Variability: Moderate 6-25 bpm Accelerations: 15X15 Decelerations: None Category: Category I Pain Presence: None/Denies Pain Type: N/A Datetime: 12/18/2016 21:00 Labor Evaluation Frequency: X1 Monitor Mode: External Duration (sec)2399: 40 Quality: Mild Resting Tone [place]: Relaxed Heart Rate FHR Baseline Rate: 140 Monitor Mode: External US Variability: Moderate 6-25 bpm Accelerations: 15X15 Decelerations: None Category: Category I Comments: LOC DUE TO MATERNAL MOVEMENTS Pain Presence: None/Denies Pain Type: N/A Datetime: 12/18/2016 20:00 Labor Evaluation Frequency: 0 Monitor Mode: External Duration (sec)2399: DENIES Resting Tone [place]: Relaxed Heart Rate FHR Baseline Rate: 150 Monitor Mode: External US Variability: Moderate 6-25 bpm Accelerations: 15X15 Decelerations: None Category: Category I Pain Presence: None/Denies Pain Type: N/A Datetime: 12/18/2016 19:41 Stage of : Antepartum Assessment Type: Ongoing Assessment Maternal Assessment Level of Consciousness: Fully Conscious DTR's/Clonus: DTRs 2+; No Clonus Headache: Denies Blurred Vision: No Respiratory Effort: Unlabored; Regular Rhythm; Equal Expansion Breath Sounds, Left: Clear and Equal Breath Sounds, Right: Clear and Equal Nausea/Vomiting: Denies RUQ Epigastric Pain: Denies Lower Extremities Edema: None Degree: None Upper Extremities Edema: None Degree: None Facial Edema: None Temperature Route: Oral Fall Risk Assessment History of Falling: (0) No Secondary Diagnosis: (0) No Ambulatory Aid: (0) Bedrest/Nurse Assist IV Therapy: (0) No Gait: (0) Normal/Bedrest/Immobile Mental Status: (0) Oriented to Own Ability Fall Score: 0 Fall Risk Score Definition: No Risk: No action required Pain Presence: None/Denies Datetime: 12/18/2016 18:57 Labor Evaluation Frequency: 0 Monitor Mode: External Duration (sec)2399: 0 Pattern: Normal: <= 5 Contractions in 10 Minutes Resting Tone [place]: Relaxed Heart Rate FHR Baseline Rate: 140 Monitor Mode: External US FHR Baseline Changes: No Baseline Change Variability: Moderate 6-25 bpm Accelerations: 15X15 Decelerations: Variable Category: Category I Datetime: 12/18/2016 18:00 Labor Evaluation Frequency: 0 Monitor Mode: External Duration (sec)2399: 0 Pattern: Normal: <= 5 Contractions in 10 Minutes Contraction Comments: DENIES FEELING ANY UC'S Heart Rate FHR Baseline Rate: 145 Monitor Mode: External US FHR Baseline Changes: No Baseline Change Variability: Moderate 6-25 bpm Accelerations: 15X15 Decelerations: None Category: Category I Datetime: 12/18/2016 16:59 Labor Evaluation Frequency: 0 Monitor Mode: External Duration (sec)2399: 0 Pattern: Normal: <= 5 Contractions in 10 Minutes Resting Tone [place]: Relaxed Contraction Comments: DENIES ANY UC'S Heart Rate FHR Baseline Rate: 140 Monitor Mode: External US FHR Baseline Changes: No Baseline Change Variability: Moderate 6-25 bpm Accelerations: 15X15 Decelerations: None Category: Category I Datetime: 12/18/2016 16:00 Labor Evaluation Frequency: 0 Monitor Mode: External Duration (sec)2399: 0 Pattern: Normal: <= 5 Contractions in 10 Minutes Heart Rate FHR Baseline Rate: 135 Monitor Mode: External US FHR Baseline Changes: No Baseline Change Variability: Moderate 6-25 bpm Accelerations: 15X15 Decelerations: None Category: Category I Datetime: 12/18/2016 15:00 Labor Evaluation Frequency: 0 Duration (sec)2399: 0 Pattern: Normal: <= 5 Contractions in 10 Minutes Resting Tone [place]: Relaxed Heart Rate FHR Baseline Rate: 140 Monitor Mode: External US FHR Baseline Changes: No Baseline Change Variability: Moderate 6-25 bpm Accelerations: 15X15 Decelerations: None Category: Category I Datetime: 12/18/2016 14:00 Labor Evaluation Frequency: 0 Monitor Mode: External Duration (sec)2399: 0 Pattern: Normal: <= 5 Contractions in 10 Minutes Resting Tone [place]: Relaxed Heart Rate FHR Baseline Rate: 140 Monitor Mode: External US FHR Baseline Changes: No Baseline Change Variability: Moderate 6-25 bpm Accelerations: 15X15 Decelerations: Variable Category: Category I Datetime: 12/18/2016 13:00 Labor Evaluation Frequency: 0 Monitor Mode: External Duration (sec)2399: 0 Pattern: Normal: <= 5 Contractions in 10 Minutes Resting Tone [place]: Relaxed Heart Rate FHR Baseline Rate: 140 Monitor Mode: External US FHR Baseline Changes: No Baseline Change Variability: Moderate 6-25 bpm Accelerations: 15X15 Decelerations: None Category: Category I Datetime: 12/18/2016 12:37 Assessment Type: Admission Assessment Vaginal Bleeding: None Maternal Assessment Level of Consciousness: Fully Conscious DTR's/Clonus: DTRs 2+; No Clonus Headache: Denies Blurred Vision: No Respiratory Effort: Unlabored; Regular Rhythm; Equal Expansion Breath Sounds, Left: Clear and Equal Breath Sounds, Right: Clear and Equal Nausea/Vomiting: Denies RUQ Epigastric Pain: Denies Lower Extremities Edema: None Degree: None Upper Extremities Edema: None Degree: None Facial Edema: None Fall Risk Assessment History of Falling: (0) No Secondary Diagnosis: (0) No Ambulatory Aid: (0) Bedrest/Nurse Assist IV Therapy: (0) No Gait: (0) Normal/Bedrest/Immobile Mental Status: (0) Oriented to Own Ability Fall Score: 0 Fall Risk Score Definition: No Risk: No action required Pain Assessment Pain Scale: 0 Pain Presence: None/Denies Pain Type: N/A Datetime: 12/18/2016 12:34 Time of Arrival: 12/18/2016 12:05 EGA: 30.4 Arrived By: Wheelchair Arrived From: Dr. Office Datetime: 12/01/2016 12:41 Stage of : OB Triage Datetime: 12/01/2016 12:28 Stage of : OB Triage Assessment Type: Triage Time Provider Notified: 12/01/2016 12:30 Maternal Assessment Level of Consciousness: Fully Conscious DTR's/Clonus: DTRs 2+; No Clonus Headache: Denies Blurred Vision: No Respiratory Effort: Unlabored; Regular Rhythm; Equal Expansion Breath Sounds, Left: Clear and Equal Breath Sounds, Right: Clear and Equal Nausea/Vomiting: Denies RUQ Epigastric Pain: Denies Facial Edema: None Temperature Route: Axillary Fall Risk Assessment History of Falling: (0) No Secondary Diagnosis: (0) No Ambulatory Aid: (0) Bedrest/Nurse Assist IV Therapy: (0) No Gait: (0) Normal/Bedrest/Immobile Mental Status: (0) Oriented to Own Ability Fall Score: 0 Fall Risk Score Definition: No Risk: No action required Labor Evaluation Frequency: 0 Monitor Mode: External Pattern: Normal: <= 5 Contractions in 10 Minutes Heart Rate FHR Baseline Rate: 155 Monitor Mode: External US Variability: Moderate 6-25 bpm Decelerations: None Category: Category I Pain Assessment Pain Scale: 0 Pain Presence: None/Denies Pain Type: N/A Pain Goal: 3 Pain Relief Measures: Comfort Measures Datetime: 12/01/2016 12:27 Time of Arrival: 12/01/2016 12:15 EGA: 28.1 Arrived By: Ambulatory Arrived From: Home Chief Complaint: FOLLOW UP FROM 2 DAYS AGO, POSS IUGR, PIH DENIES LEAKING OF FLUID, BLEEDING OR UC'S Movement: Present Contractions: Denies/Absent Rupture of Membranes: Denies Vaginal Bleeding: None Vaginal Discharge: Denies Recent Sexual Intercouse: Denies Abdominal Trauma: Not Applicable Patient Complaints: None Time Provider Notified: 12/01/2016 12:30 Provider Notified: ROSALINO Initial Plan: MONITOR, Datetime: 11/28/2016 16:11 Stage of : OB Triage Datetime: 11/28/2016 15:29 Labor Evaluation Frequency: 0 Monitor Mode: External Resting Tone [place]: Relaxed Heart Rate FHR Baseline Rate: 145 Monitor Mode: External US Variability: Moderate 6-25 bpm Decelerations: None Category: Category I Pain Assessment Pain Scale: 0 Pain Presence: None/Denies Pain Type: N/A Pain Goal: 3 Pain Relief Measures: Comfort Measures Datetime: 11/28/2016 14:25 Labor Evaluation Frequency: 0 Monitor Mode: External Duration (sec)2399: 0 Resting Tone [place]: Relaxed Heart Rate FHR Baseline Rate: 150 Monitor Mode: External US FHR Baseline Changes: No Baseline Change Variability: Moderate 6-25 bpm Accelerations: 15X15 Decelerations: None Category: Category I Datetime: 11/28/2016 13:50 Labor Evaluation Frequency: 0 Monitor Mode: External Resting Tone [place]: Relaxed Heart Rate FHR Baseline Rate: 150 Monitor Mode: External US Variability: Moderate 6-25 bpm Decelerations: None Category: Category I Pain Assessment Pain Scale: 0 Pain Presence: None/Denies Pain Type: N/A Pain Goal: 3 Pain Relief Measures: Comfort Measures Datetime: 11/28/2016 13:16 Stage of : OB Triage Datetime: 11/28/2016 12:59 Stage of : OB Triage Assessment Type: Triage Maternal Assessment Level of Consciousness: Fully Conscious DTR's/Clonus: DTRs 2+; No Clonus Headache: Denies Blurred Vision: No Respiratory Effort: Unlabored; Regular Rhythm; Equal Expansion Breath Sounds, Left: Clear and Equal Breath Sounds, Right: Clear and Equal Nausea/Vomiting: Denies RUQ Epigastric Pain: Denies Lower Extremities Edema: None Degree: None Upper Extremities Edema: None Degree: None Facial Edema: None Temperature Route: Axillary Fall Risk Assessment History of Falling: (0) No Secondary Diagnosis: (0) No Ambulatory Aid: (0) Bedrest/Nurse Assist IV Therapy: (0) No Gait: (0) Normal/Bedrest/Immobile Mental Status: (0) Oriented to Own Ability Fall Score: 0 Fall Risk Score Definition: No Risk: No action required Labor Evaluation Frequency: 0 Monitor Mode: External Resting Tone [place]: Relaxed Heart Rate FHR Baseline Rate: unable to determine fht after multiple trys of locating, u/s ordered Monitor Mode: External US Pain Assessment Pain Scale: 0 Pain Presence: None/Denies Pain Type: N/A Pain Goal: 3 Pain Relief Measures: Comfort Measures Datetime: 11/28/2016 12:53 Time of Arrival: 11/28/2016 12:20 EGA: 27.5 Arrived By: Ambulatory Arrived From: Dr. oWrrell Chief Complaint: SENT FROM OFFICE TO EVALUATE BP, FHT TACHYCARDIA, WEIGHT GAIN OF 10 LBS LAST WEEK Movement: Present Contractions: Denies/Absent Rupture of Membranes: Denies Vaginal Bleeding: None Vaginal Discharge: Denies Recent Sexual Intercouse: Denies Abdominal Trauma: Not Applicable Patient Complaints: Dizziness Time Provider Notified: 11/28/2016 13:16 Provider Notified: EILEEN Initial Plan: monitor, bpp/genoveva, efw, PIH PANEL
== END 2016-12-30 02:58 | disposition home or self-care (01) ==
LOC: OBT 22:19 → L-D 22:20 → OBT 12-30 02:58
PROVIDERS: ATTEND Obstetrics & Gynecology
DX: O13.3 Gestational [pregnancy-induced] hypertension without significant proteinuria, third trimester (principal); Z3A.32 32 weeks gestation of pregnancy
CPT/HCPCS: 80053; 81001; 84560; 85025; 85384; 85610; 85730; 96360; 96361; J7120; Z7500; Z7610; 81003; G0463

== ENCOUNTER 2017-01-06 08:06 | Inpatient (IN) | payer BC ==
[~2017-01-06] VITALS: Ht 170.2 cm; Wt 100.4 kg
[2017-01-06] VITALS (8 sets, daily range): BP systolic 127–185; BP diastolic 75–105; PULSE 73–98; RESP 18–20; Ht 170.2 cm; Wt 100.4 kg
[~2017-01-06 08:06] MED LIST changes: +ACET500C5 PO; +FERR325C PO; +LABE100T39 PO
[2017-01-06] MEDS ORDERED: LABETALOL HCL 20MG INJ IV ONE (09:00)
[2017-01-06] MEDS ORDERED: BETAMET NA PHOS/AC(6 MG/ML) 5ML INJ IM ONE (09:00)
[2017-01-06 09:03] LABS: ADD UMIC YES; URINE BILIRUBIN (Dip) NEGATIVE (NEGATIVE); URINE BLOOD (Dip) NEGATIVE (NEGATIVE); URINE COLOR LT. YELLOW (YELLOW); URINE GLUCOSE (Dip) NEGATIVE (NEGATIVE); URINE KETONES (Dip) NEGATIVE (NEGATIVE); URINE LEUKOCYTE ESTERASE (Dip) 2+ (NEGATIVE); URINE NITRITE (Dip) NEGATIVE (NEGATIVE); URINE TOTAL PROTEIN (Dip) NEGATIVE (NEGATIVE); URINE UROBILINOGEN (Dip) 0.2 E.U./dL (0.1-1.0)
[2017-01-06] MEDS: LACTATED RINGER'S 1,000 ML IV SCH (09:15)
[2017-01-06 09:18] LABS: BACTERIA,URINE MANY
--- NOTE | 2017-01-06 09:32 | RADRPT ---
PROCEDURE: US OB. CLINICAL INDICATION: labor TECHNIQUE: Multiple sonographic images of the pelvis were obtained. The images were reviewed on a PACS workstation. COMPARISON: 12/19/2016 FINDINGS: There is a single live intrauterine . cardiac activity is identified at a rate of 14 0 beats per minute. presentation is cephalic. Placenta is anterior grade II. Biophysical profile score is as follows: Breathing 2 Movements 2 Tone 2 Fluid volume 2 Amniotic fluid index = 9.1 cm Total biophysical profile score = 8/8 IMPRESSION: Biophysical profile score = 8/8 RPTAT: HH .Alexx Acevedo MD, Date Time Electronically viewed and signed by .Alexx Acevedo MD, on 01/06/2017 09:31 .W/
[2017-01-06 09:42] LABS: ALBUMIN 2.6 g/dl (3.3-4.9); POTASSIUM 4.5 mmol/L (3.5-5.1)
[2017-01-06 09:44] LABS: ALBUMIN/GLOBULIN RATIO 0.86; BILIRUBIN,INDIRECT 0.2 mg/dl (0-1.1); BILIRUBIN,TOTAL 0.2 mg/dl (0.2-1.3); CREATININE 0.51 mg/dl (0.44-1.00); INR 0.98; TOTAL PROTEIN 5.6 g/dl (6.1-8.1)
[2017-01-06 09:45] LABS: CALCIUM 8.5 mg/dl (8.4-10.2); EOSINOPHILS % 0.4 % (0.0-7.0); HEMATOCRIT 23.7 % (37.0-47.0); HEMOGLOBIN 8.1 g/dl (12.0-16.0); LYMPHOCYTES # 0.7 10^3/ul (0.8-2.9); LYMPHOCYTES % 10.2 % (15.0-51.0); MEAN CORPUSCULAR HEMOGLOBIN 30.7 pg (29.0-33.0); MEAN CORPUSCULAR HGB CONC 34.4 g/dl (32.0-37.0); MEAN CORPUSCULAR VOLUME 89.1 fl (82.0-101.0); MEAN PLATELET VOLUME 11.2 fl (7.4-10.4); MONOCYTE # 0.5 10^3/ul (0.3-0.9); MONOCYTES % 6.8 % (0.0-11.0); NEUTROPHILS % 82.6 % (39.0-77.0); PARTIAL THROMBOPLASTIN TIME 30.7 Sec (25.0-35.0); PLATELET COUNT 82 10^3/UL (140-440); RED BLOOD COUNT 2.66 10^6/ul (4.20-5.40); RED CELL DISTRIBUTION WIDTH 12.7 % (11.5-14.5); UNCORRECTED WBC 7.2 10^3/ul (4.8-10.8); WHITE BLOOD COUNT 7.2 10^3/ul (4.8-10.8)
[2017-01-06 09:47] LABS: CONDITION 1
[2017-01-06] MEDS ORDERED: METHYLERGONOVINE 0.2 MG INJ IM PRN ×2 (10:30→17:00)
[2017-01-06] MEDS ORDERED: CARBOPROST 250 MCG INJ IM PRN ×2 (10:30→17:00)
[2017-01-06] MEDS ORDERED: MISOPROSTOL 200 MCG TAB PR PRN ×2 (10:30→17:00)
[2017-01-06] MEDS ORDERED: OXYTOCIN 30 UNITS/LR 500 ML IV PRN ×2 (10:30→17:00)
[2017-01-06] MEDS ORDERED: CEFAZOLIN 2 GM/50 ML (PMX) 50 ML IVPB ONE (11:00)
[2017-01-06] MEDS ORDERED: MAGNESIUM SULFATE 4 GM/100 ML 100 ML IV SCH (11:00)
[2017-01-06] MEDS: MAGNESIUM SULFATE 20 GM/500 ML 500 ML IV SCH ×2 (11:30→21:38)
[2017-01-06] MEDS ORDERED: CITRIC ACID/NA CITRATE 30 ML CUP PO ONE (11:30)
[2017-01-06] MEDS ORDERED: ONDANSETRON 4 MG INJ IV ONE (11:30)
[2017-01-06] MEDS ORDERED: ONDANSETRON 4 MG INJ ONE (11:31)
[2017-01-06] MEDS ORDERED: CITRIC ACID/NA CITRATE 30 ML CUP ONE (11:31)
[2017-01-06] MEDS ORDERED: morphine SULFATE/PF (10 MG/10 ML) INJ ONE (11:33)
[2017-01-06] MEDS ORDERED: OXYTOCIN 10 UNIT INJ ONE (11:34)
[2017-01-06] MEDS ORDERED: METOCLOPRAMIDE 10 MG INJ ONE (11:34)
[2017-01-06] MEDS ORDERED: DEXAMETHASONE 4 MG/ML 1 ML INJ ONE (11:35)
[2017-01-06] MEDS ORDERED: DIPHENHYDRAMINE 50 MG INJ IV PRN ×2 (12:30)
[2017-01-06] MEDS ORDERED: HYDROmorphONE (0.2 MG/ML) 10ML SYG IV PRN ×2 (12:30)
[2017-01-06] MEDS ORDERED: ZOLPIDEM 5 MG TAB PO PRN (12:30)
[2017-01-06] MEDS ORDERED: NALOXONE (0.4 MG/ML) INJ IV PRN (12:30)
[2017-01-06] MEDS ORDERED: HYDROmorphONE 1 MG/ML SYG IV PRN ×2 (12:30)
[2017-01-06] MEDS ORDERED: ONDANSETRON 4 MG INJ IV PRN ×3 (12:30→23:45)
[2017-01-06] MEDS ORDERED: morphine (1 MG/ML) 10ML SYRINGE IV PRN ×2 (12:30)
[2017-01-06] MEDS ORDERED: LABETALOL HCL 20MG INJ IV PRN (12:30)
[2017-01-06] MEDS ORDERED: PROCHLORPERAZINE 10 MG INJ IV PRN (12:30)
[2017-01-06] MEDS ORDERED: KETOROLAC 30 MG INJ IV PRN ×2 (12:30→23:45)
[2017-01-06] MEDS ORDERED: morphine 2 MG INJ IV PRN ×2 (12:30)
[2017-01-06 12:56] LABS: CBV Base Excess -4.3 mmol/L; CBV COHb 0.2 %; CBV Total Hemglobin 14.8 g/dl; Fraction OxyHgb Cord Venous 12.4 %; MODE ROOM AIR; MetHgb Cord Venous 1.6 %; Sample Type CBV
[2017-01-06] MEDS: OXYTOCIN 30 UNITS/LR 500 ML IV SCH ×3 (13:21→17:39)
--- NOTE | 2017-01-06 14:06 | HP ---
Date/Time of Note Date/Time of Note DATE: 01/06/17 TIME: 13:14 OB - History Hx of Present Free Text/Dictation This is a 31 years old female 33 weeks and 1 day admitted to [facility] due to headache epigastric pain elevated blood pressure 175/101 179/170 with the diagnosis of severe PIH ,upon admission patient underwent complete PIH workup, received . 20 mg labetalol IV which lowered the blood pressure down to 150/90, perinatology consult recommended delivery, due to severity of the patient's condition and closed and long cervix not anticipating a timely delivery plan of section was discussed with the patient she understood the indication for the operative delivery and knowing the complication may arise from her condition( preeclampsia )and the complication of surgery including bowel, bladder injury,infection, intraoperative and post surgery hemorrhage ,she is willing to go ahead with the operation. History of present ; this patient has been under the care of [facility] and during the course of her except one occasion most of her blood pressures were within normal. Past history 2 normal spontaneous vaginal delivery , 2006 and 2007 both babies born at 40 weeks first baby was 7 lbs. 12 oz. And second baby was born September 2008 only weighted 5 pounds Allergy: Denies allergies to any known medication Social: Denies of smoking and drinking or using illicit drugs Review of system within normal Physical examination, 5 feet 7 inches, 221 pound' blood pressure 185/105 heart rate 73 respiration 20 temperature 98.1 Head ear nose and throat negative Neck supple no thyromegaly Lungs clear to P/A Heart, normal sinus rhythm no murmur Abdomen, fundal height 31 cm from symphysis pubis to the highest part of the uterine fundus heart consistent with the age of the no deceleration Pelvic examination cervix long and closed presenting part ballotable vertex Extremity no varicosities, 1+ edema, hyperactive reflexes Impression: Intrauterine at 33 weeks and 1, complicated with severe preeclampsia, not suitable for induction of labor patient is being prepared to undergo primary , the complication of surgery has been extensively discussed with the patient and she is willing to proceed with section delivery. Chief Complaint: at 33 week, blood pressure 175/101, complaining of headache Estimated Due Date: Feb 23, 2017 : 3 Para: 2 Spontaneous : 0 Therapeutic : 0 Care: Good Care Ultrasounds: Normal mid trimester US Obstetrical Complications: Pre-eclampsia Medical Complications: None Past Family/Social History * Past Medical, Surgical, Family and Obstetric Histories reviewed from chart. Rubella: immune RPR/VDRL: Negative GBS Status: Negative HBsAG: Unknown OB Admission Exam Vital Signs Vital Signs Vital Signs Date Time Temp Pulse Resp B/P Pulse Ox O2 Delivery O2 Flow Rate FiO2 01/06/17 08:24 98.1 73 20 185/105 Room Air Last 72 hours Lab Results CBC & BMP 01/06/17 09:06 Liver Function Test 01/06/17 09:06 Alanine Aminotransferase (ALT/SGPT) 69 Albumin 2.6 L Alkaline Phosphatase 159 H Aspartate Amino Transf (AST/SGOT) 71 H Direct Bilirubin 0.00 Total Protein 5.6 L OB Assessment/Plan Reason for admission: IUP - Plan: Section NIKKY JERRY MD Jan 06, 2017 13:58
--- NOTE | 2017-01-06 14:50 | OPR ---
DATE OF OPERATION: 01/06/2017 PREOPERATIVE DIAGNOSES: 1. Intrauterine at 33 weeks and 1 day. 2. is complicated with severe -induced hypertension. 3. Not a suitable candidate for induction of labor, recommended by perinatologist operative deliver y. POSTOPERATIVE DIAGNOSES: 1. Intrauterine at 33 weeks and 1 day. 2. is complicated with severe -induced hypertension. 3. Not a suitable candidate for induction of labor, recommended by perinatologist operative deliver y. PROCEDURE: Primary transverse low cervical section. SURGEON: Nikky Alexandra MD CAN CUTTER: Dave Fu MD ANESTHESIA: Spinal. ANESTHESIOLOGIST: Dr. Chen. FINDINGS: Live baby girl, . Baby weighed 1125 grams; 2 pounds, 8 ounces. DETAILS OF THE PROCEDURE: Under satisfactory spinal anesthesia, patient prepped and draped and plac ed in supine position, tilted to the left. Pfannenstiel incision was made, carried through the subcutaneous tissue. Bleeders brought under con trol with electrocautery. Fascia incised to the length of incision. Rectus muscles from the fascia, divided in midline. Peritoneum exposed, entered through a transverse incision. Explora tion of abdomen revealed gravid uterus, normal-appearing tubes and ovaries. Bladder flap was develo ped. Transverse incision was made in the lower segment of the uterus. Amniotic sac ruptured. Scan t amount of amniotic fluid with slightly cloudy color. Baby girl was delivered from a ballotable ve rtex. Cord was clamped. Portion of the cord was sent for the blood gas, and baby handed to the elton mars team present at the site for immediate attention. Patient received 20 units of Pitocin. Placenta delivered manually intact. Uterine cavity cleaned with wet sponge, and drainage establishe d. Uterus closed in 2 layers using Monocryl #1 in continuous fashion. Peritoneal cavity irrigated with warm saline. Sponge, needle, instrument reported to be correct. Abdominal peritoneum closed w ith 2-0 chromic catgut continuously. Rectus muscle approximated with 2 interrupted 2-0 chromic catg ut. Fascia closed with #1 PDS in a continuous fashion. Subcutaneous tissue approximated with 2-0 c hromic catgut. The skin closed with isaias. Estimated blood loss 600 mL. Urine bag contained 200 mL of clear urine. Patient tolerated procedure well. Transferred to recovery room in a good condition. Dictated By: NIKKY GRAF/MADELIN Conf#: [id number] DID#: [id number]
[2017-01-06] MEDS ORDERED: CEFAZOLIN 1 GM/50 ML (PMX) 50 ML IVPB SCH (17:00)
[2017-01-06] MEDS ORDERED: OXYCODONE/ACETAMINOPHEN (5/325) TAB PO PRN ×2 (17:00)
[2017-01-06] MEDS ORDERED: LANOLIN 7 GM TUBE TOP PRN (17:00)
[2017-01-06] MEDS ORDERED: ACETAMINOPHEN/CODEINE #3 TAB PO PRN ×2 (17:00)
[2017-01-06] MEDS ORDERED: IBUPROFEN 600 MG TAB PO SCH (18:00)
[2017-01-06 18:24] LABS: BASOPHILS % 0.1 % (0.0-2.0); HEMOGLOBIN 12.7 g/dl (12.0-16.0); LYMPHOCYTES % 5.6 % (15.0-51.0); MEAN CORPUSCULAR HEMOGLOBIN 30.5 pg (29.0-33.0); MEAN CORPUSCULAR HGB CONC 34.4 g/dl (32.0-37.0); MEAN CORPUSCULAR VOLUME 88.5 fl (82.0-101.0); MEAN PLATELET VOLUME 11.4 fl (7.4-10.4); MONOCYTE # 0.1 10^3/ul (0.3-0.9); MONOCYTES % 0.7 % (0.0-11.0); NEUTROPHIL # 16.5 10^3/ul (1.6-7.5); NEUTROPHILS % 93.6 % (39.0-77.0); PLATELET COUNT 166 10^3/UL (140-440); RED BLOOD COUNT 4.18 10^6/ul (4.20-5.40); RED CELL DISTRIBUTION WIDTH 12.9 % (11.5-14.5); UNCORRECTED WBC 17.6 10^3/ul (4.8-10.8); WHITE BLOOD COUNT 17.6 10^3/ul (4.8-10.8)
[2017-01-06 18:26] LABS: CONDITION 1; LH ANALYZER COMMENTS 1
--- NOTE | 2017-01-06 19:03 | TRIAGE ---
OB Triage Datetime Report Generated by CPN: 01/06/2017 19:02 Datetime: 01/06/2017 15:36 Stage of : Recovery Datetime: 01/06/2017 15:30 Stage of : Recovery Datetime: 01/06/2017 15:22 Stage of : Recovery Pain Assessment Pain Scale: 5 Pain Presence: Constant Pain Type: Cramping Pain Location: Abdomen Pain Goal: 2 Datetime: 01/06/2017 15:07 Stage of : Recovery Pain Assessment Pain Scale: 5 Pain Presence: Constant Pain Type: Cramping Pain Location: Abdomen Pain Goal: 2 Datetime: 01/06/2017 14:52 Stage of : Recovery Pain Assessment Pain Scale: 6 Pain Presence: Constant Pain Type: Cramping Pain Location: Abdomen Pain Goal: 2 Datetime: 01/06/2017 14:37 Stage of : Recovery Pain Assessment Pain Scale: 6 Pain Presence: Constant Pain Type: Cramping Pain Location: Abdomen Pain Goal: 2 Datetime: 01/06/2017 14:22 Stage of : Recovery Pain Assessment Pain Scale: 6 Pain Presence: Constant Pain Type: Cramping Pain Location: Abdomen Pain Goal: 2 Datetime: 01/06/2017 14:07 Stage of : Recovery Pain Assessment Pain Scale: 6 Pain Presence: Constant Pain Type: Cramping Pain Location: Abdomen Pain Goal: 2 Datetime: 01/06/2017 14:06 Stage of : Recovery Datetime: 01/06/2017 13:37 Stage of : Recovery Pain Assessment Pain Scale: 6 Pain Presence: Constant Pain Type: Cramping Pain Location: Abdomen Pain Goal: 2 Datetime: 01/06/2017 13:22 Stage of : Recovery Pain Assessment Pain Scale: 6 Pain Presence: Constant Pain Type: Cramping Pain Location: Abdomen Pain Goal: 2 Datetime: 01/06/2017 13:07 Stage of : Recovery Pain Assessment Pain Scale: 6 Pain Presence: Constant Pain Type: Cramping Pain Location: Abdomen Pain Goal: 2 Datetime: 01/06/2017 12:52 Stage of : Recovery Temperature Route: Oral Pain Assessment Pain Scale: 6 Pain Presence: Constant Pain Type: Cramping Pain Location: Abdomen Pain Goal: 2 Datetime: 01/06/2017 11:35 Labor Evaluation Frequency: 0 Monitor Mode: External Heart Rate FHR Baseline Rate: 140 Monitor Mode: External US FHR Baseline Changes: No Baseline Change Variability: Moderate 6-25 bpm Accelerations: 15X15 Decelerations: None Category: Category I Pain Assessment Pain Scale: 8 Pain Presence: Intermittent Pain Type: Contraction Pain Location: Abdomen Pain Goal: 0 Pain Relief Measures: Comfort Measures Vaginal Exam Membrane Status: Intact Datetime: 01/06/2017 10:30 Assessment Type: Admission Assessment Vaginal Bleeding: None Maternal Assessment Level of Consciousness: Fully Conscious Blurred Vision: No Respiratory Effort: Unlabored; Regular Rhythm; Equal Expansion Nausea/Vomiting: Denies RUQ Epigastric Pain: Present Lower Extremities Edema: None Degree: None Upper Extremities Edema: None Degree: None Facial Edema: None Fall Risk Assessment History of Falling: (0) No Secondary Diagnosis: (0) No Ambulatory Aid: (0) Bedrest/Nurse Assist IV Therapy: (0) No Gait: (0) Normal/Bedrest/Immobile Mental Status: (0) Oriented to Own Ability Fall Score: 0 Fall Risk Score Definition: No Risk: No action required Heart Rate FHR Baseline Rate: 135 Variability: Moderate 6-25 bpm Accelerations: 15X15 Decelerations: None Category: Category I Pain Assessment Pain Scale: 8 Pain Presence: Intermittent Pain Type: Cramping Pain Location: Abdomen Pain Goal: 0 Vaginal Exam Membrane Status: Intact Datetime: 01/06/2017 10:27 Labor Evaluation Frequency: 0 Heart Rate FHR Baseline Rate: 135 Monitor Mode: External US FHR Baseline Changes: No Baseline Change Variability: Moderate 6-25 bpm Accelerations: 15X15 Decelerations: None Category: Category I Pain Assessment Pain Scale: 8 Pain Presence: Intermittent Pain Type: Cramping Pain Location: Abdomen Pain Goal: 0 Pain Relief Measures: Comfort Measures Vaginal Exam Membrane Status: Intact Datetime: 01/06/2017 10:00 Stage of : Labor Datetime: 01/06/2017 09:29 Labor Evaluation Frequency: 0 Heart Rate FHR Baseline Rate: 140 Monitor Mode: External US FHR Baseline Changes: No Baseline Change Variability: Moderate 6-25 bpm Accelerations: 10X10 Decelerations: None Category: Category I Pain Assessment Pain Scale: 8 Pain Presence: Intermittent Pain Type: Cramping Pain Location: Abdomen Pain Goal: 0 Datetime: 01/06/2017 08:59 Headache: Generalized Blurred Vision: No RUQ Epigastric Pain: Present Labor Evaluation Frequency: 0 Duration (sec)2399: 0 Heart Rate FHR Baseline Rate: 150 Monitor Mode: External US FHR Baseline Changes: No Baseline Change Variability: Moderate 6-25 bpm Accelerations: 10X10 Decelerations: None Category: Category I Pain Assessment Pain Scale: 8 Pain Presence: Intermittent Pain Type: Cramping Pain Location: Abdomen Pain Goal: 2 Pain Relief Measures: Comfort Measures Datetime: 01/06/2017 08:20 Stage of : OB Triage Assessment Type: Triage Maternal Assessment Level of Consciousness: Fully Conscious DTR's/Clonus: No Clonus Headache: Generalized Blurred Vision: No Respiratory Effort: Unlabored; Regular Rhythm; Equal Expansion Nausea/Vomiting: Denies RUQ Epigastric Pain: Denies Lower Extremities Edema: None Degree: None Upper Extremities Edema: None Degree: None Facial Edema: None Temperature Route: Axillary Fall Risk Assessment History of Falling: (0) No Secondary Diagnosis: (0) No Ambulatory Aid: (0) Bedrest/Nurse Assist IV Therapy: (0) No Gait: (0) Normal/Bedrest/Immobile Mental Status: (0) Oriented to Own Ability Fall Score: 0 Fall Risk Score Definition: No Risk: No action required Monitor Mode: External Monitor Mode: External US Pain Assessment Pain Scale: 8 Pain Presence: Intermittent Pain Type: Cramping Pain Location: Abdomen Pain Goal: 0 Pain Relief Measures: Comfort Measures Vaginal Exam Membrane Status: Intact Datetime: 01/06/2017 08:16 Time of Arrival: 01/06/2017 08:05 EGA: 33.1 Arrived By: Wheelchair Arrived From: Home Chief Complaint: CRAMPING SINCE 0500 AM Movement: Present Contractions: Irregular Time Contractions Began: 01/06/2017 05:00 Rupture of Membranes: Denies Vaginal Bleeding: None Vaginal Discharge: Denies Recent Sexual Intercouse: Denies Patient Complaints: Cramping Time Provider Notified: 01/06/2017 08:50 Provider Notified: DR. JERRY Initial Plan: EFM, UA, CBC Datetime: 12/29/2016 22:30 Fall Score: 0 Fall Risk Score Definition: No Risk: No action required Datetime: 12/29/2016 22:21 EGA: 32.0 Datetime: 12/20/2016 07:30 Fall Score: 0 Fall Risk Score Definition: No Risk: No action required Datetime: 12/19/2016 20:02 Fall Score: 0 Fall Risk Score Definition: No Risk: No action required Datetime: 12/19/2016 07:45 Fall Score: 0 Fall Risk Score Definition: No Risk: No action required Datetime: 12/18/2016 19:41 Fall Score: 0 Fall Risk Score Definition: No Risk: No action required Datetime: 12/18/2016 12:37 Fall Score: 0 Fall Risk Score Definition: No Risk: No action required Datetime: 12/18/2016 12:34 EGA: 30.3 Datetime: 12/01/2016 12:28 Fall Score: 0 Fall Risk Score Definition: No Risk: No action required Datetime: 12/01/2016 12:27 EGA: 28.0 Datetime: 11/28/2016 12:59 Fall Score: 0 Fall Risk Score Definition: No Risk: No action required Datetime: 11/28/2016 12:58 Membranes Ruptured Date/Time: 01/06/2017 12:13 Membranes Rupture Method: Artificial Amniotic Fluid Color: Bloody Amniotic Fluid Amount: Moderate Amniotic Fluid Odor: Normal Presentation 'A': Cephalic Datetime: 11/28/2016 12:53 EGA: 27.4
[2017-01-06] MEDS: SENNA/DOCUSATE NA (8.6MG/50MG) TAB PO SCH (21:31)
[2017-01-07] VITALS (15 sets, daily range): BP systolic 123–148; BP diastolic 60–88; PULSE 83–98; RESP 17–18
[2017-01-07] MEDS: OXYTOCIN 30 UNITS/LR 500 ML IV SCH ×5 (00:58→12:58)
--- NOTE | 2017-01-07 03:16 | CONS ---
Date/Time of Note Date/Time of Note DATE: 01/07/17 TIME: 03:15 Consultation Date/Type/Reason Admit Date/Time Jan 06, 2017 at 10:00 Initial Consult Date 01/06/17 Type of Consultation: Anesthesia Reason for Consultation 24 HR Interval Summary Free Text/Dictation 31 yr old female went under due to PIH, Labor. Spinal anesthesia was give, and intrathecal Duramorph was given for post-op pain control. Patient is doing well post op, pain is well controlled. No nausea or vomiting noted. No apnea reported. No itching and no sensory or motor loss noted. Patient will be followed up by her primary team. Exam/Review of Systems Vital Signs Vitals Vital Signs Date Time Temp Pulse Resp B/P Pulse Ox O2 Delivery O2 Flow Rate FiO2 01/07/17 01:00 92 18 127/76 Room Air 01/07/17 00:00 97.9 01/06/17 23:23 97 21 Intake and Output 01/06/17 01/06/17 01/07/17 14:59 22:59 06:59 Intake Total 1263 ml 1150 ml 675 ml Output Total 1100 ml 300 ml 400 ml Balance 163 ml 850 ml 275 ml Results Result Diagram: 01/06/17 1802 01/06/17 0906 Results 24 hrs Laboratory Tests Test 01/06/17 08:15 01/06/17 09:06 01/06/17 12:41 01/06/17 18:02 Urine Bacteria MANY Urine Bilirubin NEGATIVE Urine Clarity CLEAR Urine Color LT. YELLOW Urine Epithelial Cells MANY Urine Glucose NEGATIVE Urine Hemoglobin NEGATIVE Urine Ketones NEGATIVE Urine Leukocyte Esterase 2+ H Urine Microscopic RBC 5-10 Urine Microscopic WBC 25-50 Urine Nitrite NEGATIVE Urine Specific [place] <=1.005 L Urine Total Protein NEGATIVE Urine Urobilinogen 0.2 E.U./dL Urine pH 6.0 Activated Partial Thromboplast Time 30.7 Alanine Aminotransferase (ALT/SGPT) 69 Albumin 2.6 L Albumin/Globulin Ratio 0.86 Alkaline Phosphatase 159 H Anion Gap 16 Aspartate Amino Transf (AST/SGOT) 71 H Basophils # 0.0 0.0 Basophils % 0.0 0.1 Blood Morphology Comment Blood Urea Nitrogen 7 Calcium Level 8.5 Carbon Dioxide Level 20 L Chloride Level 104 Creatinine 0.51 Direct Bilirubin 0.00 Eosinophils # 0.0 0.0 Eosinophils % 0.4 0.0 Globulin 3.00 Glucose Level 75 Hematocrit 23.7 #L 37.0 # Hemoglobin 8.1 #L 12.7 # Hepatitis B Surface Antigen NEGATIVE INR International Normalized Ratio 0.98 Indirect Bilirubin 0.2 Lymphocytes # 0.7 L 1.0 Lymphocytes % 10.2 L 5.6 L Mean Corpuscular Hemoglobin 30.7 30.5 Mean Corpuscular Hemoglobin Concent 34.4 34.4 Mean Corpuscular Volume 89.1 88.5 Mean Platelet Volume 11.2 H 11.4 H Monocytes # 0.5 0.1 L Monocytes % 6.8 0.7 Neutrophils # 6.0 16.5 H Neutrophils % 82.6 H 93.6 H Nucleated Red Blood Cells # 0.0 0.0 Nucleated Red Blood Cells % 0.0 0.0 Platelet Count 82 #L 166 # Potassium Level 4.5 Prothrombin Time 13.0 Prothrombin Time Ratio 1.0 Red Blood Count 2.66 #L 4.18 #L Red Cell Distribution Width 12.7 12.9 Sodium Level 135 Total Bilirubin 0.2 Total Protein 5.6 L Uric Acid 4.8 White Blood Count 7.2 # 17.6 #H Garrick Test N/A Arterial Blood Date Drawn 01/06/2017 12:50:00 PM Arterial Blood Gas Puncture Site CORD Blood Gas Critical Value Read Back Kofi PENDLETON Blood Gas Modality ROOM AIR Blood Gas Notified Time 01/06/2017 12:56:11 PM Blood Gas Notified Whom MM Blood Gas Specimen Source CBV Blood Gas Temperature 37.0 Cord Blood Carboxyhemoglobin 0.2 Cord Venous Blood Base Excess -4.3 Cord Venous Blood HCO3 23.3 Cord Venous Blood Hemoglobin 14.8 Cord Venous Blood Methemoglobin 1.6 Cord Venous Blood Oxyhemoglobin 12.4 Cord Venous Blood PCO2 52.7 H Cord Venous Blood pH 7.263 FiO2 21.0 Magnesium Level 5.4 *H Test 01/07/17 00:43 Magnesium Level 5.9 *H Medications Medications Current Medications Lactated Ringer's 1,000 ml @ 75 mls/hr [id number] IV Last administered on t 09:15; Admin Dose 75 MLS/HR; Start 01/06/17 at 08:50 Magnesium Sulfate (Magnesium Sulfate 20 Gm/500 ml) 500 ml @ 50 mls/hr Q10H IV Last administered on 01/06/17 21:38; Admin Dose 50 MLS/HR; Start 01/06/17 at 11 :25 Acetaminophen/ Codeine Phosphate (Tylenol No.3) 1 tab Q4H PRN PO PAIN LEVEL 4-6 ; Start 01/06/17 at 17:00 Acetaminophen/ Codeine Phosphate (Tylenol No.3) 2 tab Q4H PRN PO PAIN LEVEL 7- 10; Start 01/06/17 at 17:00 Oxycodone/ Acetaminophen (Percocet (5/ 325)) 1 tab Q4H PRN PO PAIN LEVEL 4-6; Start 01/06/17 at 17:00 Oxycodone/ Acetaminophen (Percocet (5/ 325)) 2 tab Q4H PRN PO PAIN LEVEL 7-10; Start 01/06/17 at 17:00 Simethicone (Mylicon) 160 mg Q8H PRN PO DISTENSION/GAS/BLOATING; Start at 17:00 Senna/Docusate Sodium (Senokot-S) 1 tab BID PO Last administered on 01/06/17 21:31; Admin Dose 1 TAB; Start 01/06/17 at 21:00 Diphtheria/ Tetanus/Acell Pertussis 0.5 ml 0.5 ml ONCE ONCE IM* ; Start at 09:00; Stop 01/09/17 at 09:01 Oxytocin/Lactated Ringer's 500 ml @ 0 mls/hr ONCE PRN IV For Hemorrhage Management; Start 01/06/17 at 17:00 Methylergonovine Maleate (Methergine) 0.2 mg ONCE PRN IM VAGINAL BLEEDING; Start 01/06/17 at 17:00 Carboprost Tromethamine (Hemabate) 250 mcg ONCE PRN IM VAGINAL BLEEDING; Start 01/06/17 at 17:00 Misoprostol 1000 mcg 1,000 mcg ONCE PRN MI VAGINAL BLEEDING; Start 01/06/17 at 17:00 Oxytocin/Lactated Ringer's 500 ml @ 125 mls/hr Q4H IV Last administered on 01:07; Admin Dose 125 MLS/HR; Start 01/06/17 at 16:58 Ibuprofen (Motrin) 600 mg Q6 PO ; Start 01/07/17 at 12:00 Influenza Virus Vaccine (Fluzone) 0.5 ml ONCE ONCE IM* ; Start 01/08/17 at 09:00 ; Stop 01/08/17 at 09:01 Ketorolac Tromethamine (Toradol) 30 mg Q6H PRN IV PAIN; Start 01/06/17 at 23:45 ; Stop 01/09/17 at 23:44 Ondansetron HCl (Zofran Inj) 4 mg Q6H PRN IV NAUSEA AND/OR VOMITING; Start at 23:45 ADAL PERSON MD Jan 07, 2017 03:16
[2017-01-07] MEDS: LACTATED RINGER'S 1,000 ML IV SCH ×2 (06:25→11:30)
[2017-01-07] MEDS: MAGNESIUM SULFATE 20 GM/500 ML 500 ML IV SCH (06:27)
[2017-01-07 07:39] LABS: HEMATOCRIT 32.8 % (37.0-47.0); HEMOGLOBIN 11.6 g/dl (12.0-16.0); LYMPHOCYTES # 1.2 10^3/ul (0.8-2.9); LYMPHOCYTES % 7.4 % (15.0-51.0); MEAN CORPUSCULAR HEMOGLOBIN 31.7 pg (29.0-33.0); MEAN CORPUSCULAR HGB CONC 35.5 g/dl (32.0-37.0); MEAN CORPUSCULAR VOLUME 89.4 fl (82.0-101.0); MEAN PLATELET VOLUME 10.8 fl (7.4-10.4); MONOCYTE # 0.8 10^3/ul (0.3-0.9); MONOCYTES % 5.2 % (0.0-11.0); NEUTROPHILS % 87.4 % (39.0-77.0); PLATELET COUNT 153 10^3/UL (140-440); RED BLOOD COUNT 3.66 10^6/ul (4.20-5.40); RED CELL DISTRIBUTION WIDTH 12.4 % (11.5-14.5)
[2017-01-07 07:42] LABS: CONDITION 1
[2017-01-07 07:46] LABS: ALBUMIN 2.9 g/dl (3.3-4.9); POTASSIUM 4.4 mmol/L (3.5-5.1)
[2017-01-07 07:48] LABS: CREATININE 0.61 mg/dl (0.44-1.00)
[2017-01-07 07:49] LABS: ALBUMIN/GLOBULIN RATIO 1.03; BILIRUBIN,INDIRECT 0.1 mg/dl (0-1.1); BILIRUBIN,TOTAL 0.1 mg/dl (0.2-1.3); TOTAL PROTEIN 5.7 g/dl (6.1-8.1)
[2017-01-07 07:50] LABS: CALCIUM 6.5 mg/dl (8.4-10.2)
[2017-01-07] MEDS: SENNA/DOCUSATE NA (8.6MG/50MG) TAB PO SCH ×2 (09:30→20:30)
[2017-01-07] MEDS: IBUPROFEN 600 MG TAB PO SCH ×2 (12:18→18:23)
--- NOTE | 2017-01-07 18:01 | PN ---
Date/Time of Note Date/Time of Note DATE: 01/07/17 TIME: 17:59 OB Subjective Subjective Subjective Post day 1 Patient's vital signs are stable her blood pressures running between 120s 130s over 75-80's no complain of headache blurry vision lightheadedness or epigastric pain, abdomen soft bowel sounds present patient resting in bed in a visited her she was having her dinner and was in no distress ambulation recommended, her urine test for protein is negative as well as her PIH panel tests NIKKY JERRY MD Jan 07, 2017 18:01
--- NOTE | 2017-01-07 22:36 | NSTRPT ---
NST Information Datetime Report Generated by CPN: 01/07/2017 22:36 Datetime: 01/04/2017 09:00 NST Information EGA: 32.6 Test Number: 6 Time on Monitor: 01/04/2017 09:40 Time off Monitor: 01/04/2017 10:01 NST Duration (Min): 21 Reason for NST: Gestational Hypertension; IUGR Reason for NST Other: AC 1% Test and Monitor Explained: Monitor Explained; Test Explained Temp : 97.3 Pulse: 77 Resp: 16 SBP: 136 DBP: 86 Test Evaluation NST Interventions: None Patient States Movement: Present Contraction Frequency: no uc FHR Baseline : 145 Variability: Moderate 6-25bpm Accelerations: 15X15 Decelerations: None FHR Category: Category I NST Results: Reactive Comments: To u/s, cephalic, genoveva 8.5 1010-Pt home undelivered with PTL _ HTN precautions, kick count instructions reviewed and follow up NST appt given. States understanding and denies further questions at this time. Electronically Signed By E-Signature: with User ID: [id number] Datetime: 01/01/2017 08:42 NST Information EGA: 32.3 NST Duration (Min): 57 Datetime: 12/28/2016 08:41 NST Information EGA: 31.6 NST Duration (Min): 40 Datetime: 12/25/2016 08:38 NST Information EGA: 31.3 NST Duration (Min): 50 Datetime: 12/21/2016 09:31 NST Information EGA: 30.6 NST Duration (Min): 37
[2017-01-08] MEDS: IBUPROFEN 600 MG TAB PO SCH ×4 (00:19→18:09)
[2017-01-08 04:30] VITALS: BP 135/82; PULSE 87; RESP 18
[2017-01-08 07:40] VITALS: BP 133/85; PULSE 78; RESP 18
[2017-01-08] MEDS: SENNA/DOCUSATE NA (8.6MG/50MG) TAB PO SCH ×2 (08:40→22:10)
[2017-01-08] MEDS ORDERED: INFLUENZA VIRUS VACCINE 0.5 ML (DISPENSING) IM* ONE (09:00)
--- NOTE | 2017-01-08 13:04 | PN ---
Date/Time of Note Date/Time of Note DATE: 01/08/17 TIME: 13:03 OB Subjective Subjective Subjective Post due to Vital signs stable afebrile abdomen soft bowel sounds present incision passing flatus no bowel movement enema recommended, NIKKY JERRY MD Jan 08, 2017 13:04
[2017-01-08] MEDS ORDERED: NA PHOSPHATE/BIPHOS 133 ML ENEMA PR ONE (13:30)
[2017-01-08 16:05] VITALS: BP 140/85; PULSE 91; RESP 18
[2017-01-08 20:15] VITALS: BP 141/90; PULSE 88; RESP 20
[2017-01-09] VITALS (12 sets, daily range): BP systolic 130–164; BP diastolic 65–94; PULSE 64–85; RESP 18–21
[2017-01-09] MEDS: IBUPROFEN 600 MG TAB PO SCH ×5 (00:34→23:31)
[2017-01-09] MEDS: SENNA/DOCUSATE NA (8.6MG/50MG) TAB PO SCH ×2 (09:00→20:53)
[2017-01-09] MEDS ORDERED: DIPHTH/TET/ACEL PERTUSS (ADULT) 0.5 ML VIAL IM* ONE (09:00)
--- NOTE | 2017-01-09 13:01 | PN ---
Date/Time of Note Date/Time of Note DATE: 01/09/17 TIME: 12:58 OB Subjective Subjective Subjective Afebrile blood pressures running between 120 140/70 and 80s no complain of headache blurry vision or epigastric pain seems alert and a stable, her incision dry abdomen soft had normal bowel movement discharge instructions discussed with the patient planning a.m. discharge prescription of analgesics into the patient. NIKKY JERRY MD Jan 09, 2017 13:01
[2017-01-09] MEDS: LABETALOL 200 MG TAB PO SCH ×2 (16:09→21:00)
[2017-01-09] MEDS: LACTATED RINGER'S 1,000 ML IV SCH (17:34)
[2017-01-09] MEDS: MAGNESIUM SULFATE 20 GM/500 ML 500 ML IV SCH (17:50)
[2017-01-10] VITALS (25 sets, daily range): BP systolic 118–149; BP diastolic 62–99; PULSE 72–94; RESP 17–85
[2017-01-10] MEDS: MAGNESIUM SULFATE 20 GM/500 ML 500 ML IV SCH ×2 (02:22→11:55)
[2017-01-10] MEDS: LACTATED RINGER'S 1,000 ML IV SCH ×2 (05:08→17:19)
[2017-01-10] MEDS: IBUPROFEN 600 MG TAB PO SCH ×3 (05:45→17:47)
[2017-01-10] MEDS: LABETALOL 200 MG TAB PO SCH ×2 (09:00→20:50)
[2017-01-10] MEDS: SENNA/DOCUSATE NA (8.6MG/50MG) TAB PO SCH ×2 (09:39→20:50)
--- NOTE | 2017-01-10 09:40 | PN ---
Date/Time of Note Date/Time of Note DATE: 01/10/17 TIME: 09:30 OB Subjective Subjective Subjective Sixth post day Afebrile, abdomen soft bowel sounds present patient had normal bowel movement, her blood pressures is running on mid 130s over 80s and 90s during the past 12 hours she did have one episod of high blood pressure 160/98 she was placed on magnesium sulfate for seizure prophylaxis, today, is not complaining of headache , blurry vision or epigastric pain, will continue magnesium sulfate until this evening for the 24 hours course, will reevaluate the patient if needs further treatment with magnesium sulfate, she is also on labetalol 200 mg by mouth every 12 hours. NIKKY JERRY MD Jan 10, 2017 09:40
[2017-01-10] MEDS ORDERED: MAGNESIUM SULFATE 20 GM/500 ML 500 ML IV SCH (19:30)
[2017-01-11] VITALS (11 sets, daily range): BP systolic 114–143; BP diastolic 59–84; PULSE 72–89; RESP 17–21
[2017-01-11] MEDS: IBUPROFEN 600 MG TAB PO SCH ×3 (00:11→11:49)
[2017-01-11] MEDS: LACTATED RINGER'S 1,000 ML IV SCH (03:34)
[2017-01-11] MEDS: SENNA/DOCUSATE NA (8.6MG/50MG) TAB PO SCH (08:47)
[2017-01-11] MEDS: LABETALOL 200 MG TAB PO SCH (08:47)
--- NOTE | 2017-01-11 10:09 | PN ---
Date/Time of Note Date/Time of Note DATE: 01/11/17 TIME: 10:05 OB Subjective Subjective Subjective Fifth post day for PIH Vital sign stable her blood pressure while on labetalol 200 mg twice a day running on 130s 140s over 80s not complaining of headache epigastric pain or revision ambulating comfortably, ordered to stop magnesium sulfate which continue monitoring her blood pressure and her logical symptoms toward the rest of the day if all are stable she may discharge home. NIKKY JERRY MD Jan 11, 2017 10:08
== END 2017-01-11 16:00 | disposition home or self-care (01) | DRG 765 ==
LOC: OBT 08:06 → L-D 08:07 → OBT 10:00 → L-D 11:40 → PP1 16:36
PROVIDERS: ADMIT Obstetrics & Gynecology; ATTEND Obstetrics & Gynecology
PROC: 30233R1 Transfusion of Nonautologous Platelets into Peripheral Vein, Percutaneous Approach (ICD-10-PCS; 2017-01-06)
PROC: 10D00Z1 Extraction of Products of Conception, Low, Open Approach (ICD-10-PCS; principal; 2017-01-06 12:00)
DX: O14.13 Severe pre-eclampsia, third trimester (principal); O13.3 Gestational [pregnancy-induced] hypertension without significant proteinuria, third trimester; Z37.0 Single live birth; Z3A.33 33 weeks gestation of pregnancy
CPT/HCPCS: 36415; 36430; 76818; 80053; 81001; 81003; 82803; 83735; 84560; 85025; 85610; 85730; 86592; 86644; 86850; 86900; 86901; 86920; 86945; 87340; 88307; 90686; 90715; 94760; 99464; G0463; J0690; J0702; J1100; J1170; J1885; J2274; J2405; J2590; J2765; J3475; J7120; P9035

== ENCOUNTER 2017-02-06 00:31 | Emergency (ER) | payer BC ==
[~2017-02-06] VITALS: Wt 87.3 kg
[2017-02-06] MEDS ORDERED: morphine 2 MG INJ IV STA (02:41)
[2017-02-06] MEDS ORDERED: ONDANSETRON 4 MG INJ IV STA (02:41)
[2017-02-06] MEDS ORDERED: SOD CHLORIDE 0.9% 1,000 ML IV STA (02:41)
[2017-02-06] MEDS ORDERED: LABE100T3 PO (03:32)
--- NOTE | 2017-02-06 03:32 | ERD ---
ER Documentation Chief Complaint Date/Time DATE: 02/06/17 TIME: 03:31 Chief Complaint pt. states post op pain to csect 4 wks ago HPI 31-year-old male presents to emergency department complaining of periumbilical pain started today. Patient described the pain as throbbing pain, 6/10 scale, not better or worse with anything, since her section done 4 weeks ago. Started to have the pain only today. Patient denies any fever or chills. Patient denies any nausea or vomiting. Patient is constipated at times. Patient denies hematuria or dysuria. ROS All systems reviewed and are negative except as per history of present illness. Medications Home Meds Reported Medications Labetalol Hcl* (Labetalol Hcl*) Unknown Strength Tablet, PO BID, TAB 02/06/17 Allergies Allergies: Coded Allergies: No Known Allergy (Verified , 12/29/16) PMhx/Soc History of Surgery: Yes (C section) Anesthesia Reaction: No Hx Neurological Disorder: No Hx Respiratory Disorders: No Hx Cardiac Disorders: No Hx Psychiatric Problems: No Hx Miscellaneous Medical Probl: Yes (pre eclampsia) Hx Alcohol Use: No Hx Substance Use: No Hx Tobacco Use: No Smoking Status: Never smoker FmHx Family History: No coronary disease, No diabetes, No other Physical Exam Vitals Vital Signs Date Time Temp Pulse Resp B/P Pulse Ox O2 Delivery O2 Flow Rate FiO2 02/06/17 00:33 98.6 107 20 119/82 98 Physical Exam GENERAL: The patient is well developed and appropriate for usual state of health, in no apparent distress. CHEST: Clear to auscultation bilaterally. There are no rales, wheezes or rhonchi. HEART: Regular rate and rhythm. No murmurs, clicks, rubs or gallops. No S3 or S4. ABDOMEN: Soft, nontender and nondistended. Good bowel sounds. No rebound or guarding. No gross peritonitis. No gross organomegaly or masses. No Reyez sign or McBurney point tenderness. BACK: No midline or flank tenderness. EXTREMITIES: Equal pulses bilaterally. There is no peripheral clubbing, cyanosis or edema. No focal swelling or erythema. Full range of motion. Grossly neurovascularly intact. NEURO: Alert and oriented. Cranial nerves 2-12 intact. Motor strength in all 4 extremities with 5/5 strength. Sensation grossly intact. Normal speech and gait. SKIN: There is no apparent rash or petechia. The skin is warm and dry. HEMATOLOGIC AND LYMPHATIC: There is no evidence of excessive bruising or lymphedema. No gross cervical, axillary, or inguinal lymphadenopathy. Result Diagram: 02/06/1731302/06/174 Results 24 hrs Laboratory Tests Test 02/06/17 03:00 02/06/17 03:14 Urine Bilirubin NEGATIVE Urine Clarity CLEAR Urine Color LT. YELLOW Urine Glucose NEGATIVE% Urine Hemoglobin NEGATIVE Urine Ketones NEGATIVE Urine Leukocyte Esterase NEGATIVE Urine Nitrite NEGATIVE Urine Specific [place] 1.020 Urine Total Protein NEGATIVE Urine Urobilinogen 0.2 E.U./dL Urine pH 6.0 Alanine Aminotransferase (ALT/SGPT) 48IU/L Albumin 3.8g/dl Albumin/Globulin Ratio 1.15 Alkaline Phosphatase 103IU/L Anion Gap 18 Aspartate Amino Transf (AST/SGOT) 34IU/L Basophils # 0.010^3/ul Basophils % 0.2% Blood Urea Nitrogen 16mg/dl Calcium Level 9.1mg/dl Carbon Dioxide Level 27mmol/L Chloride Level 106mmol/L Creatinine 0.90mg/dl Direct Bilirubin 0.00mg/dl Eosinophils # 0.210^3/ul Eosinophils % 2.7% Globulin 3.30g/dl Glucose Level 98mg/dl Hematocrit 38.9% Hemoglobin 13.0g/dl Indirect Bilirubin 0.0mg/dl Lipase 132U/L Lymphocytes # 2.310^3/ul Lymphocytes % 25.5% Mean Corpuscular Hemoglobin 30.0pg Mean Corpuscular Hemoglobin Concent 33.4g/dl Mean Corpuscular Volume 89.8fl Mean Platelet Volume 11.9fl Monocytes # 0.810^3/ul Monocytes % 9.2% Neutrophils # 5.510^3/ul Neutrophils % 61.9% Nucleated Red Blood Cells # 0.010^3/ul Nucleated Red Blood Cells % 0.0/100WBC Platelet Count 24650^3/UL Potassium Level 4.5mmol/L Red Blood Count 4.3310^6/ul Red Cell Distribution Width 12.1% Sodium Level 146mmol/L Total Bilirubin 0.0mg/dl Total Protein 7.1g/dl White Blood Count 8.810^3/ul Current Medications Medications (Trade) Dose Ordered Sig/Di Route PRN Reason Start Time Stop Time Status Last Admin Dose Admin Sodium Chloride (NS) 1,000 ml @ 1,000 mls/hr Q1H STAT IV 02/06/17 02:41 02/06/17 03:40 DC 02/06/17 03:49 Morphine Sulfate (morphine) 2 mg ONCE STAT IV 02/06/17 02:41 02/06/17 02:42 DC 02/06/17 03:48 Ondansetron HCl 4 mg 4 mg ONCE STAT IV 02/06/17 02:41 02/06/17 02:42 DC 02/06/17 03:48 Sodium Chloride (NS) 100 ml @ ud STK-MED ONCE .ROUTE 02/06/17 04:07 02/06/17 04:08 DC 02/06/17 04:24 Iohexol (Omnipaque 300mg/ ml) 150 ml STK-MED ONCE .ROUTE 02/06/17 04:07 02/06/17 04:08 DC 02/06/17 04:23 Patient was given medication for pain here in emergency department, after treatment, patient verbalized feeling much better. Patient's pain is improved.Patient was given Zofran here in the emergency department. After treatment, patient was able to tolerate po fluids here in the emergency department without any vomiting. There is no signs and symptoms of dehydration. Normal saline IV bolus was given here in emergency department for rehydration, patient tolerated IV fluids. PROCEDURE: CT Abdomen and pelvis with contrast. CLINICAL INDICATION: Abdominal pain. TECHNIQUE: CT scan of the abdomen and pelvis with contrast was performed on a multi-detector high-resolution CT scanner. The patient was scanned following the uncomplicated intravenous administration of 100 cc of Omnipaque 300. Coronal and sagittal reformatted images were obtained from the axial source images. Images were reviewed on a high-resolution PACS workstation. One or more of the following dose reduction techniques were used: - Automated exposure control. - Adjustment of the mA and/or kV according to patient size. - Use of iterative reconstruction technique. Exam CTD/vol = 21.46 mGy. Total exam DLP = 1343.96 mGy-cm. COMPARISON: None. FINDINGS: Evaluation of the lung bases demonstrates mild bibasilar atelectasis. Abdomen: The liver is normal in size. There is no focal mass or dilatation of the biliary tree. The gallbladder is not distended. The spleen, pancreas and bilateral adrenal glands are within normal limits. Bilateral kidneys are normal in size with symmetric enhancement. There is no focal mass, hydronephrosis or hydroureter. There is no retroperitoneal adenopathy. The abdominal aorta is of normal caliber. There is a retroaortic left renal vein. There is moderate retained stool within the colon. There is no bowel obstruction or free air. A normal appendix is identified. There is no diverticulosis or diverticulitis. There is no ascites. Pelvis: The bladder is unremarkable. The uterus and adnexa are within normal limits. There is no significant pelvic adenopathy or free fluid. Evaluation of the osseous structures demonstrates no suspicious lytic or blastic lesion. IMPRESSION: No acute abnormality identified within the abdomen and pelvis. Moderate retained stool within the colon. Mild bibasilar atelectasis. .Negrito Gomez MD, MD Date Time Electronically viewed and signed by .Negrito Gomez MD, on 02/06/2017 04:28 Procedures/MDM Medical Decision Making: Patient's abdominal pain nonspecific at this time, possibly constipation related. No postoperative abscess or any postoperative complications noted. There is low suspicion for abdominal emergencies at this time. Patients abdominal exam is normal at this time. Patients radiology exam does not show any abdominal emergencies at this time. There is low suspicion for appendicitis, cholecystitis, abdominal aortic aneurysms or peritonitis at this time. There is low suspicion for sepsis. Patient appears well and is hemodynamically stable. Disposition: Home. Condition: Stable Prescription MiraLAX Colace, tramadol Instructions: Patient is advised to take medications as prescribed. Patient is advised to rest, increase fluid intake and do high-fiber diet for next 1-2 days and progress as tolerated. Patient is advised that if symptoms are worse, severe abdominal pain, uncontrolled vomiting, high fever, severe flank pain, worst signs and symptoms, to return to the emergency department immediately. Otherwise, patient can follow up with primary care doctor in 5-7 days. Departure Diagnosis: Primary Impression: Abdominal pain Abdominal location: lower abdomen, unspecified Qualified Code: R10.30 - Lower abdominal pain Additional Impression: Constipation Constipation type: unspecified constipation type Qualified Code: K59.00 - Constipation, unspecified constipation type Condition: Stable Patient Instructions: Abdominal Pain, Constipation (Adult) Additional Instructions: Patient is advised to take medications as prescribed. Patient is advised to rest , increase fluid intake and do high-fiber diet for next 1-2 days and progress as tolerated. Patient is advised that if symptoms are worse, severe abdominal pain, uncontrolled vomiting, high fever, severe flank pain, worst signs and symptoms, to return to the emergency department immediately. Otherwise, patient can follow up with primary care doctor in 5-7 days. LENA THOMSON NP Feb 06, 2017 03:32
[2017-02-06 03:48] LABS: ADD SCAN DIFF NO
[2017-02-06 03:49] LABS: BASOPHILS % 0.2 % (0.0-2.0); EOSINOPHILS # 0.2 10^3/ul (0.0-0.5); EOSINOPHILS % 2.7 % (0.0-7.0); HEMATOCRIT 38.9 % (37.0-47.0); LYMPHOCYTES # 2.3 10^3/ul (0.8-2.9); LYMPHOCYTES % 25.5 % (15.0-51.0); MEAN CORPUSCULAR HGB CONC 33.4 g/dl (32.0-37.0); MEAN CORPUSCULAR VOLUME 89.8 fl (82.0-101.0); MEAN PLATELET VOLUME 11.9 fl (7.4-10.4); MONOCYTE # 0.8 10^3/ul (0.3-0.9); MONOCYTES % 9.2 % (0.0-11.0); NEUTROPHIL # 5.5 10^3/ul (1.6-7.5); NEUTROPHILS % 61.9 % (39.0-77.0); PLATELET COUNT 230 10^3/UL (140-415); RED BLOOD COUNT 4.33 10^6/ul (4.20-5.40); RED CELL DISTRIBUTION WIDTH 12.1 % (11.5-14.5); WHITE BLOOD COUNT 8.8 10^3/ul (4.8-10.8)
[2017-02-06 03:53] LABS: ADD UMIC NO; URINE BILIRUBIN (Dip) NEGATIVE (NEGATIVE); URINE BLOOD (Dip) NEGATIVE (NEGATIVE); URINE COLOR LT. YELLOW (YELLOW); URINE GLUCOSE (Dip) NEGATIVE (NEGATIVE); URINE KETONES (Dip) NEGATIVE (NEGATIVE); URINE LEUKOCYTE ESTERASE (Dip) NEGATIVE (NEGATIVE); URINE NITRITE (Dip) NEGATIVE (NEGATIVE); URINE TOTAL PROTEIN (Dip) NEGATIVE (NEGATIVE); URINE UROBILINOGEN (Dip) 0.2 E.U./dL (0.1-1.0)
[2017-02-06 03:59] LABS: ALBUMIN 3.8 g/dl (3.3-4.9)
[2017-02-06 04:00] LABS: POTASSIUM 4.5 mmol/L (3.5-5.1)
[2017-02-06 04:02] LABS: CREATININE 0.9 mg/dl (0.44-1.00)
[2017-02-06 04:03] LABS: ALBUMIN/GLOBULIN RATIO 1.15; CALCIUM 9.1 mg/dl (8.4-10.2); TOTAL PROTEIN 7.1 g/dl (6.1-8.1)
[2017-02-06] MEDS ORDERED: SOD CHLORIDE 0.9% 100 ML ONE (04:07)
[2017-02-06] MEDS ORDERED: IOHEXOL 300MG/ML 150 ML BTL ONE (04:07)
--- NOTE | 2017-02-06 04:28 | RADRPT ---
PROCEDURE: CT Abdomen and pelvis with contrast. CLINICAL INDICATION: Abdominal pain. TECHNIQUE: CT scan of the abdomen and pelvis with contrast was performed on a multi-detector high -resolution CT scanner. The patient was scanned following the uncomplicated intravenous administrat ion of 100 cc of Omnipaque 300. Coronal and sagittal reformatted images were obtained from the axia l source images. Images were reviewed on a high-resolution PACS workstation. One or more of the following dose reduction techniques were used: - Automated exposure control. - Adjustment of the mA and/or kV according to patient size. - Use of iterative reconstruction technique. Exam CTD/vol = 21.46 mGy. Total exam DLP = 1343.96 mGy-cm. COMPARISON: None. FINDINGS: Evaluation of the lung bases demonstrates mild bibasilar atelectasis. Abdomen: The liver is normal in size. There is no focal mass or dilatation of the biliary tree. T he gallbladder is not distended. The spleen, pancreas and bilateral adrenal glands are within romie l limits. Bilateral kidneys are normal in size with symmetric enhancement. There is no focal mass, hydronephrosis or hydroureter. There is no retroperitoneal adenopathy. The abdominal aorta is of normal caliber. There is a retroaortic left renal vein. There is moderate retained stool within the colon. There is no bowel obstruction or free air. A no rmal appendix is identified. There is no diverticulosis or diverticulitis. There is no ascites. Pelvis: The bladder is unremarkable. The uterus and adnexa are within normal limits. There is no significant pelvic adenopathy or free fluid. Evaluation of the osseous structures demonstrates no suspicious lytic or blastic lesion. IMPRESSION: No acute abnormality identified within the abdomen and pelvis. Moderate retained stool within the colon. Mild bibasilar atelectasis. .Negrito Gomez MD, MD Date Time Electronically viewed and signed by .Negrito Gomez MD, MD on 02/06/2017 04:28 .T/
[2017-02-06] MEDS ORDERED: TRAM50TA2 PO (04:44)
[2017-02-06] MEDS ORDERED: DOCU-144 PO (04:44)
[2017-02-06] MEDS ORDERED: POLY17PO6 PO (04:44)
[2017-02-06 05:32] VITALS: BP 111/78; PULSE 72; RESP 20; TEMP 98.6
== END 2017-02-06 05:20 | disposition home or self-care (01) ==
LOC: FTE 00:31
DX: R10.30 Lower abdominal pain, unspecified (principal); K59.00 Constipation, unspecified
CPT/HCPCS: 36415; 74177; 80053; 81003; 83690; 85025; 96374; 96375; J2270; J2405; J7030; Q9967; Z7502; Z7610